=== PATIENT | male | born 1960 | race Caucasian/White ===

== ENCOUNTER 2016-09-07 01:03 | Emergency (ER) | payer MEDICARE, MEDICAID ==
[~2016-09-07] VITALS: Ht 172.7 cm; Wt 71.2 kg
[~2016-09-07 01:03] MED LIST: BISA-79 GT; CALA177L13 TP; CARI350T27 GT; DIPH1TAB PO; DOCU50LI GT; FOLI1TAB16 GT; HYDR2TAB4 GT; HYDR453.3 TP; HYDR4TAB4 GT; LIDO700A TP; ONDA4TAB8 PO; OXYC20TA42 GT; PANT40TA2 GT; POLY250017 GT; SUCR1ORA GT; TAMS0.4C34 GT; THIA100T74 GT
[2016-09-07] MEDS: HYDROMORPHONE 1 MG/1 ML DISP.SYRIN IV ONE ×3 (01:54→04:55)
[2016-09-07] MEDS: ONDANSETRON 4 MG/2 ML VIAL IV ONE (01:55)
--- NOTE | 2016-09-07 01:55 | NUR ---
Pt erlinda from [facility]. Pt c/o severe left shoulder pain s/p slipping on water. Pt seen by Dr. Alvarez. IV established. Pt medicated for pain, will monitor for effects of medication. Pt repositioned for comfort.
[2016-09-07] MEDS ORDERED: HYDROMORPHONE 1 MG/1 ML DISP.SYRIN ONE ×3 (02:01→05:00)
[2016-09-07] MEDS ORDERED: ONDANSETRON 4 MG/2 ML VIAL ONE (02:01)
[2016-09-07] MEDS ORDERED: TAMS-3 GT (02:22)
[2016-09-07] MEDS ORDERED: HYDR-4076 (02:22)
[2016-09-07] MEDS ORDERED: LACT1CAP69 GT (02:22)
[2016-09-07] MEDS ORDERED: AMLO10TA4 GT (02:22)
--- NOTE | 2016-09-07 02:33 | NUR ---
attempted to obtain xrays, unable due to pt wanting to use the restroom. Pt ambulated with slow shuffled gait to br. xray to return in approx 10 mins
--- NOTE | 2016-09-07 02:50 | NUR ---
Attempted to apply sling while waiting for xray to return and pt refused.
--- NOTE | 2016-09-07 03:01 | NUR ---
radiology at bedside.
--- NOTE | 2016-09-07 03:08 | NUR ---
all xrays accept c-spine were obtained. Unable to obtain due to pain. Pt requesting more pain medication. Dr. Alvarez notified, awaiting further orders.
[2016-09-07] MEDS ORDERED: HYDROMORPHONE 1 MG/1 ML DISP.SYRIN IV ONE (03:15)
--- NOTE | 2016-09-07 03:24 | NUR ---
Pt medicated for discomfort, will monitor for effects of medication. Pt repositioned for comfort.
--- NOTE | 2016-09-07 04:14 | NUR ---
Pt to be discharged back to [facility]. Report called to LISA Andujar. Med Responsed called, awaiting S transport.
--- NOTE | 2016-09-07 04:58 | NUR ---
Pt stable for discharge per MD. IV dc'd, catheter intact, drsg applied. No problems noted to site. Pt given ACI. Pt verbalized understanding of dc instructions. Pt left ER via BLS ambulance
[2016-09-07 05:00] VITALS: BP 143/92
== END 2016-09-07 05:01 | disposition home or self-care (01) ==
LOC: ER 01:05
DX: S46.912A Strain of unspecified muscle, fascia and tendon at shoulder and upper arm level, left arm, initial encounter (principal); S40.022A Contusion of left upper arm, initial encounter; K21.9 Gastro-esophageal reflux disease without esophagitis; I50.9 Heart failure, unspecified; Z85.118 Personal history of other malignant neoplasm of bronchus and lung; K44.9 Diaphragmatic hernia without obstruction or gangrene; Z90.49 Acquired absence of other specified parts of digestive tract; G89.29 Other chronic pain; W01.0XXA Fall on same level from slipping, tripping and stumbling without subsequent striking against object, initial encounter; Y93.89 Activity, other specified; Y92.9 Unspecified place or not applicable; Y99.9 Unspecified external cause status
CPT/HCPCS: 73020; 73060; A4663; J1170; J2405

== ENCOUNTER 2016-12-13 20:44 | Emergency (ER) | payer MEDICARE, MEDICAID ==
[~2016-12-13] VITALS: Ht 170.2 cm; Wt 68.0 kg
[~2016-12-13 20:44] MED LIST changes: +AMLO10TA4 GT; +HYDR-4076; -HYDR453.3 TP; +LACT1CAP69 GT; +TAMS-3 GT; -TAMS0.4C34 GT
[2016-12-13] MEDS ORDERED: IV NORMAL SALINE 1000 ML BAG IV ONE (21:00)
[2016-12-13] MEDS ORDERED: PANTOPRAZOLE SODIUM 40 MG VIAL IV ONE (21:00)
[2016-12-13] MEDS ORDERED: ONDANSETRON 4 MG/2 ML VIAL IV ONE (21:00)
[2016-12-13] MEDS ORDERED: HYDROMORPHONE 1 MG/1 ML DISP.SYRIN IV ONE (21:00)
[2016-12-13 21:21] LABS: BASOPHILS # (AUTO) 0.1 K/uL (0.0-8.0); EOSINOPHILS # (AUTO) 0.1 K/uL (0.0-0.7); EOSINOPHILS % (AUTO) 1.2 % (0.0-7.0); HEMATOCRIT 43.3 % (40-50); HEMOGLOBIN 14.3 G/DL (14.0-18.0); LYMPHOCYTES # (AUTO) 2.1 K/UL (0.8-4.8); LYMPHOCYTES % (AUTO) 36.5 % (20.5-51.5); MEAN CORPUSCULAR HEMOGLOBIN 25.7 UUG (27.0-31.0); MEAN CORPUSCULAR HGB CONC 33 g/dL (32.0-37.0); MEAN CORPUSCULAR VOLUME 78.1 FL (82.0-92.0); MONOCYTES # (AUTO) 0.4 K/UL (0.1-1.30); MONOCYTES % (AUTO) 6.9 % (0.0-11.0); NEUTROPHILS % (AUTO) 53.4 % (38.5-71.5); PLATELET COUNT (AUTO) 271 K/UL (150-450); RED BLOOD CELL COUNT(AUTO) 5.54 MIL/UL (4.7-6.1); WHITE BLOOD COUNT (AUTO) 5.7 K/UL (4.0-11.2)
[2016-12-13 21:32] LABS: CREATININE 1.1 mg/dL (0.6-1.3); POTASSIUM 4.1 mmol/L (3.5-5.1)
[2016-12-13 21:37] LABS: BILIRUBIN,DIRECT 0.1 mg/dL (0.0-0.2); BILIRUBIN,TOTAL 0.3 mg/dL (0.2-1.0); TOTAL PROTEIN, SERUM 8.7 g/dL (6.4-8.2)
[2016-12-13] MEDS ORDERED: PANTOPRAZOLE SODIUM 40 MG VIAL ONE (21:50)
[2016-12-13] MEDS ORDERED: ONDANSETRON 4 MG/2 ML VIAL ONE ×2 (21:50→23:48)
[2016-12-13] MEDS ORDERED: HYDROMORPHONE 2 MG/1 ML DISP.SYRIN ONE (21:50)
--- NOTE | 2016-12-13 21:52 | NUR ---
BARBI CALLED, DR. MONROE PAGED. AWAITING CALL.
[2016-12-13] MEDS ORDERED: BENZ1SPR MM (22:17)
[2016-12-13] MEDS ORDERED: BENZ7GEL6 MM (22:17)
[2016-12-13] MEDS ORDERED: CHOL500050 GT (22:17)
[2016-12-13] MEDS ORDERED: ONDA4TAB5 GT (22:17)
[2016-12-13] MEDS ORDERED: DEXL30CA3 GT (22:17)
[2016-12-13 22:30] VITALS: BP 130/49
--- NOTE | 2016-12-13 22:31 | NUR ---
Pt. admitted to [facility] , under care of Dr. MONROE Belongs List completed.
--- NOTE | 2016-12-13 22:40 | NUR ---
PT IS A 56 YEAR OLD MALE ADMIT TO MED SURG FOR DX ABDOMINAL PAIN, NAUSEA AND VOMITING. PER REPORT PT WAS BIB AMBULANCE FROM [facility] FOR C/O ABDOMINAL PAIN. UPON FACE TO FACE PT IS AOX4, AMBULATORY, INTACT, G-TUBE NOTED IN CENTRAL ABDOMINAL AREA. PT DOES C/O PAIN 8/10 ABDOMINAL AREA AT THIS TIME. LUNG SOUNDS CLEAR THROUGH OUT WITH AUSCULTATION. HEP LOCK # 22 IN LEFT FOREARM, INTACT AND PATENT. NO ACUTE DISTRESS NOTED. COMFORT MEASURES PROVIDED. Addendum: 12/14/16 at 0324 by MAGUE TRINIDAD RN MD NOTIFIED FOR ORDERS.
[2016-12-13] MEDS ORDERED: CARISOPRODOL 350 MG TABLET GT PRN (23:00)
[2016-12-13] MEDS ORDERED: POLYETHYLENE GLYCOL 17 GM GT PRN (23:00)
[2016-12-13] MEDS ORDERED: TAMSULOSIN HCL 0.4 MG CAP.SR.24H PO SCH (23:00)
[2016-12-13] MEDS ORDERED: Medication Not On Formulary EA (Oxycodone Hcl 20 MG) GT PRN (23:00)
[2016-12-13] MEDS ORDERED: BISACODYL 5 MG TABLET.DR PO PRN (23:00)
[2016-12-13] MEDS ORDERED: Medication Not On Formulary EA (Hydromorphone HCl (Dilaudid) 4 MG) GT PRN (23:00)
[2016-12-13] MEDS ORDERED: hydrALAZINE HCL 25 MG TABLET GT PRN (23:00)
[2016-12-13] MEDS ORDERED: ZOLPIDEM 5 MG TABLET GT PRN (23:15)
--- NOTE | 2016-12-13 23:20 | NUR ---
PT MADE AWARE OF ORDERS OBTAINED, PT UPSET DILAUDID NOT ORDERED FOR PAIN, PT EDUCATED THAT PER MD THERE IS A SHORTAGE OF DILAUDID, SO PT REQUEST ANY OTHER MEDICATION FOR PAIN, MD NOTIFIED, AWAITING RESPONSE.
[2016-12-13] MEDS ORDERED: LORAZEPAM 2 MG/1 ML VIAL IV PRN (23:30)
[2016-12-13] MEDS ORDERED: ONDANSETRON 4 MG/2 ML VIAL IV PRN (23:30)
--- NOTE | 2016-12-13 23:40 | NUR ---
PT MADE AWARE OF MD ORDER TO GIVE TRAMADOL GT PRN,PT STATING "I WAS GIVEN THAT MEDICATION BEFORE AT [facility] AND IT MADE MY STOMACH BLEED, I DON'T WANT IT" "JUST GIVE ME THE PAPER TO SIGN, I WANT TO LEAVE". MD WAS MADE AWARE PT REQUESTED TO LEAVE AGAINST MEDICAL ADVICE. PT VERBALIZED UNDERSTANDING OF THE RISKS AND CONSEQUENCES RELATED TO LEAVING AGAINST MEDICAL ADVICE.
[2016-12-13] MEDS ORDERED: TRAMADOL HCL 50 MG TABLET GT PRN (23:45)
[2016-12-13] MEDS ORDERED: LORAZEPAM 2 MG/1 ML VIAL ONE (23:48)
[2016-12-13] MEDS ORDERED: TAMSULOSIN HCL 0.4 MG CAP.SR.24H ONE ×2 (23:49→23:50)
--- NOTE | 2016-12-13 23:55 | NUR ---
PT HEP LOCK IN LEFT FOREARM REMOVED. PT BELONGINGS RETURNED TO PT. PT SIGNED PAPER FOR LEAVING AGAINST MEDICAL ADVICE. STATED "I AM GOING TO CALL MY OWN RIDE AND [facility] NO ACUTE DISTRESS NOTED.
[2016-12-14] MEDS ORDERED: TRAMADOL HCL 50 MG TABLET ONE (00:03)
[2016-12-14] MEDS ORDERED: DOCUSATE SODIUM 100 MG/10 ML LIQUID UDC GT SCH (09:00)
[2016-12-14] MEDS ORDERED: AMLODIPINE 10 MG TABLET GT SCH (09:00)
[2016-12-14] MEDS ORDERED: FOLIC ACID 1 MG TABLET GT SCH (09:00)
[2016-12-14] MEDS ORDERED: LIDOCAINE 5% PATCH TD SCH (09:00)
[2016-12-14] MEDS ORDERED: THIAMINE HCL 100 MG TABLET GT SCH (09:00)
[2016-12-14] MEDS ORDERED: Medication Not On Formulary EA (Lactobacillus Acidophilus (Probiotic) 1 EACH) GT SCH (09:00)
[2016-12-14] MEDS ORDERED: PANTOPRAZOLE ORAL SUSPENSION 40 MG SUSPDR.PKT GT SCH (09:00)
== END 2016-12-13 22:17 | disposition left against medical advice (07) ==
LOC: ER 20:47 → EDBD 22:17 → MED 22:17 → ER 22:17 → UNDOADMIN 22:17 → UNDODISIN 12-14 00:01
DX: R10.10 Upper abdominal pain, unspecified (principal); R11.2 Nausea with vomiting, unspecified; I50.9 Heart failure, unspecified; K21.9 Gastro-esophageal reflux disease without esophagitis; Z88.8 Allergy status to other drugs, medicaments and biological substances; Z88.6 Allergy status to analgesic agent; Z90.49 Acquired absence of other specified parts of digestive tract; Z85.118 Personal history of other malignant neoplasm of bronchus and lung; N40.0 Benign prostatic hyperplasia without lower urinary tract symptoms; R97.20 Elevated prostate specific antigen [PSA]
CPT/HCPCS: 36415; 74176; 80048; 80076; 82378; 83690; 84153; 85025; 93005; 96361; 96374; 96375; 99285; A4663 ×2; C9113; J1170; J2405; J7030; J2060

== ENCOUNTER 2019-08-17 22:46 | Inpatient (IN) | payer MEDICARE, OTHER ==
[~2019-08-17] VITALS: Ht 170.2 cm; Wt 64.9 kg
[~2019-08-17 22:46] MED LIST changes: +BENZ1SPR MM; +BENZ7GEL6 MM; -CALA177L13 TP; +CHOL500050 GT; +DEXL30CA3 GT; -HYDR-4076; +HYDR-894; -HYDR2TAB4 GT; +ONDA4TAB5 GT; -ONDA4TAB8 PO; -PANT40TA2 GT; -SUCR1ORA GT
[2019-08-17] MEDS ORDERED: SUCR1ORA15 PO (23:12)
[2019-08-17] MEDS ORDERED: PHEN-704 PO (23:12)
[2019-08-17] MEDS ORDERED: DICY20TA11 GT (23:12)
[2019-08-17] MEDS ORDERED: OPIU1SUP RC (23:12)
[2019-08-17] MEDS ORDERED: CARI350T PO (23:12)
[2019-08-17] MEDS ORDERED: DIAZ5TAB4 PO (23:12)
[2019-08-17] MEDS ORDERED: AMLO10TA7 GT (23:12)
[2019-08-17] MEDS ORDERED: FOLI1TAB16 GT (23:12)
[2019-08-17] MEDS ORDERED: POLY17PO4 GT (23:12)
[2019-08-17] MEDS ORDERED: PANT40SU2 GT (23:12)
--- NOTE | 2019-08-17 23:15 | NUR ---
Dr. Armas at bedside for MSE.
[2019-08-17] MEDS ORDERED: HYDROMORPHONE 1 MG/1 ML DISP.SYRIN IV ONE (23:30)
[2019-08-17] MEDS ORDERED: ONDANSETRON 4 MG/2 ML VIAL IV ONE (23:30)
[2019-08-17] MEDS ORDERED: HYDROMORPHONE 1 MG/1 ML DISP.SYRIN ONE (23:37)
[2019-08-17] MEDS ORDERED: ONDANSETRON 4 MG/2 ML VIAL ONE (23:37)
[2019-08-17 23:48] LABS: CREATININE 1.2 mg/dL (0.6-1.3); POTASSIUM 3.1 mmol/L (3.5-5.1)
[2019-08-17 23:49] LABS: BASOPHILS # (AUTO) 0.3 K/uL (0.0-8.0); BASOPHILS % (AUTO) 4.1 % (0.0-2.0); EOSINOPHILS # (AUTO) 0.1 K/uL (0.0-0.7); EOSINOPHILS % (AUTO) 1.5 % (0.0-7.0); HEMOGLOBIN 9.1 g/dL (12.5-16.3); LYMPHOCYTES # (AUTO) 2.2 K/uL (20.0-40.0); LYMPHOCYTES % (AUTO) 33.9 % (20.5-51.5); MEAN CORPUSCULAR HEMOGLOBIN 20.1 uug (23.8-33.4); MEAN CORPUSCULAR HGB CONC 30 g/dL (32.5-36.3); MEAN CORPUSCULAR VOLUME 66.2 fL (73.0-96.2); MONOCYTES # (AUTO) 0.5 K/uL (2.0-10.0); MONOCYTES % (AUTO) 8.2 % (0.0-11.0); NEUTROPHILS # (AUTO) 3.4 K/uL (1.8-8.9); NEUTROPHILS % (AUTO) 52.3 % (38.5-71.5); PLATELET COUNT (AUTO) 375 K/uL (152-348); RED BLOOD CELL COUNT(AUTO) 4.53 MIL/uL (4.06-5.63); WHITE BLOOD COUNT (AUTO) 6.4 K/uL (3.6-10.2)
[2019-08-17 23:53] LABS: BILIRUBIN,DIRECT 0.1 mg/dL (0.0-0.2); BILIRUBIN,TOTAL 0.3 mg/dL (0.2-1.0); TOTAL PROTEIN, SERUM 8.3 g/dL (6.4-8.2)
[2019-08-18 00:10] LABS: *BILIRUBIN,URIN NEGATIVE (NEGATIVE); *BLOOD, URINE NEGATIVE (NEGATIVE); *CLARITY,URINE CLOUDY (CLEAR); *COLOR,URINE YELLOW (YELLOW); *KETONES,URINE NEGATIVE (NEGATIVE); *UROBILINOGEN,URINE 0.2 E.U./dl (NORMAL); LEUKOCYTE ESTERASE ,URINE 2+ (NEGATIVE); NITRITE, URINE NEGATIVE (NEGATIVE); PH,URINE 5.5 (5.0-8.0); UGLUCOSE NEGATIVE (NEGATIVE)
--- NOTE | 2019-08-18 00:15 | NUR ---
KATELYN Mooney at bedside.
[2019-08-18 00:16] LABS: WBC,URINE 80-100 /HPF (0-3)
[2019-08-18 00:18] LABS: BACTERIA,URINE MODERATE /HPF (NONE SEEN); SQUAMOUS EPITHELIAL CELL,UR MODERATE /HPF (NONE SEEN)
--- NOTE | 2019-08-18 00:29 | NUR ---
Pt requested to have second round of pain medications after CT scan so he can rest and allow the medication to work.
[2019-08-18] MEDS ORDERED: HYDROMORPHONE 1 MG/1 ML DISP.SYRIN IV ONE ×2 (00:30→03:30)
--- NOTE | 2019-08-18 00:33 | NUR ---
Pt down for CT at this time, accompanied by Printing Press Operator Apprentice.
--- NOTE | 2019-08-18 00:50 | NUR ---
Pt back from CT.
[2019-08-18] MEDS ORDERED: HYDROMORPHONE 1 MG/1 ML DISP.SYRIN ONE (00:53)
--- NOTE | 2019-08-18 01:18 | NUR ---
Pt went back down to CT.
[2019-08-18] MEDS ORDERED: CEFTRIAXONE /D5W 50ML IVPB **ER PYXIS IV ONE (01:20)
[2019-08-18] MEDS ORDERED: CEFTRIAXONE 1 G in IV DEXTROSE 5% 50 ML IV ONE (01:30)
[2019-08-18] MEDS ORDERED: POTASSIUM CHLORIDE 20 MEQ TAB.PRT.SR PO ONE (01:45)
--- NOTE | 2019-08-18 03:09 | NUR ---
Pt brought in by [facility], arranged for return trip back to facility. 30 to 45 minutes ETA. S/W Iam.
--- NOTE | 2019-08-18 03:16 | NUR ---
Pt will not be sent back to facility. will admit patient to Med Surg. Placed a call to [email or web address] for panel call. Awaiting call back. Charge Nurse Gris made aware of pending admission. Room 304 provided.
--- NOTE | 2019-08-18 03:44 | NUR ---
Pt refusing indwelling harp catheter, despite risk and benefits explained of continued In and Out catheterization, however patient refused.
--- NOTE | 2019-08-18 03:45 | NUR ---
Dr. Armas in panel call with Satya Arshad NP. Accepted for admission to [facility] for Intractable Pain/UTI. All belongings noted and accounted for. MRSA Swab done.
[2019-08-18] MEDS ORDERED: Z GUARD REMEDY PASTE 57 GM TUBE TOP PRN (04:00)
[2019-08-18] MEDS ORDERED: MAGNESIUM HYDROXIDE 30 ML LIQUID UDC PO PRN (04:00)
--- NOTE | 2019-08-18 04:09 | NUR ---
Finished giving report to Nisreen GILES. Will transport patient via wheelchair, accompanied by RN.
[2019-08-18 04:12] VITALS: BP 133/59
--- NOTE | 2019-08-18 04:20 | NUR ---
Patient arrived via wheelchair from the ED with belongings.
--- NOTE | 2019-08-18 04:25 | NUR ---
Warm handoff to Nisreen/Rei GILES. Pt transferred to Room 304 in stable condition.
[2019-08-18] MEDS: HYDROMORPHONE 1 MG/1 ML DISP.SYRIN IV PRN ×2 (05:13→10:02)
--- NOTE | 2019-08-18 06:26 | NUR ---
Patient lying calmly in bed. No signs of acute distress. Patient denies c/o pain or SOB. Patient needs met and attended to. Safety measures endorsed to oncoming staff.
[2019-08-18 07:06] LABS: CREATININE 1.1 mg/dL (0.6-1.3); PHOSPHOROUS 3.9 mg/dL (2.5-4.9); POTASSIUM 3.9 mmol/L (3.5-5.1)
[2019-08-18 07:30] LABS: THYROID STIMULATING HORMONE 3.24 mIU/mL (0.358-3.740)
--- NOTE | 2019-08-18 08:00 | NUR ---
Patient in bed, awake and verbally responsive. No signs of distress noted. No SOB. No complain of pain at this time. Gtube intact and patent. kept clean and comfortable. Will continue to monitor.
[2019-08-18] MEDS ORDERED: JEVITY 1.2 1000 ML LIQUID GT PRN (09:30)
[2019-08-18] MEDS ORDERED: hydrALAZINE HCL 25 MG TABLET PO PRN (11:15)
[2019-08-18] MEDS ORDERED: AMLODIPINE 10 MG TABLET GT SCH (11:15)
[2019-08-18] MEDS ORDERED: ONDANSETRON HCL 4 MG TABLET GT PRN (11:15)
[2019-08-18] MEDS ORDERED: CARISOPRODOL 350 MG TABLET PO PRN (11:15)
[2019-08-18] MEDS ORDERED: PHENAZOPYRIDINE HCL 100 MG TABLET PO PRN (11:15)
[2019-08-18] MEDS ORDERED: SUCRALFATE 1 G/10 ML LIQUID UDC PO PRN (11:15)
[2019-08-18] MEDS: DOCUSATE SODIUM 100 MG/10 ML LIQUID UDC GT SCH ×2 (11:29→16:21)
[2019-08-18] MEDS: FOLIC ACID 1 MG TABLET GT SCH (11:29)
[2019-08-18] MEDS: AMLODIPINE 10 MG TABLET GT SCH (11:33)
[2019-08-18 11:42] VITALS: BP 116/58
[2019-08-18] MEDS: THIAMINE HCL 100 MG TABLET GT SCH (11:43)
[2019-08-18] MEDS: IV NS 1000 ML 1,000 ML IV PRN (12:19)
[2019-08-18] MEDS ORDERED: OXYCODONE HCL 5 MG TABLET GT PRN (13:15)
[2019-08-18] MEDS ORDERED: DIAZEPAM 5 MG TABLET PO PRN (13:30)
[2019-08-18] MEDS: DICYCLOMINE HCL 20 MG TABLET GT SCH ×2 (13:42→17:04)
[2019-08-18] MEDS ORDERED: SOD FERRIC GLUC COMPLX/SUCROSE 125 MG in IV NORMAL SALINE 100 ML IV SCH (14:00)
[2019-08-18] MEDS: HYDROMORPHONE 2 MG/1 ML DISP.SYRIN IV PRN ×3 (14:13→22:36)
[2019-08-18 15:07] VITALS: BP 118/58
[2019-08-18 16:06] LABS: BASOPHILS # (AUTO) 0.2 K/uL (0.0-8.0); EOSINOPHILS # (AUTO) 0.1 K/uL (0.0-0.7); EOSINOPHILS % (AUTO) 1.8 % (0.0-7.0); HEMATOCRIT 30.2 % (36.7-47.1); HEMOGLOBIN 9.1 g/dL (12.5-16.3); LYMPHOCYTES # (AUTO) 1.2 K/uL (20.0-40.0); LYMPHOCYTES % (AUTO) 29.1 % (20.5-51.5); MEAN CORPUSCULAR HEMOGLOBIN 20.3 uug (23.8-33.4); MEAN CORPUSCULAR HGB CONC 30 g/dL (32.5-36.3); MEAN CORPUSCULAR VOLUME 67.1 fL (73.0-96.2); MONOCYTES # (AUTO) 0.4 K/uL (2.0-10.0); MONOCYTES % (AUTO) 9.2 % (0.0-11.0); NEUTROPHILS # (AUTO) 2.2 K/uL (1.8-8.9); NEUTROPHILS % (AUTO) 54.9 % (38.5-71.5); PLATELET COUNT (AUTO) 328 K/uL (152-348)
[2019-08-18] MEDS ORDERED: CARISOPRODOL 350 MG TABLET GT PRN (17:45)
[2019-08-18] MEDS: ONDANSETRON 4 MG/2 ML VIAL IV PRN (18:23)
--- NOTE | 2019-08-18 18:35 | NUR ---
Resident awake,no distress noted, afebrile,c/o lower back pain ,PRN pain medication given , dilaudid given 3x with relieved ,IV line in place on Rt AC and Lt hand, no s/s of infiltration, Jt/Gt intact, refused gt feeding at this d/t c/o of nausea, Zofran PRN given, Per Pt to resumed Gt feeding later once he feels better,call light with in reach, will continue to monitor.,
--- NOTE | 2019-08-18 19:50 | NUR ---
Patient received in bed, AAOx4. Patient denies any acute distress or pain at this time. LH IV is intact and running with NS at 50cc. Patient has a GJ tube, patent, dry and intact with no sign of infection noted. Patient is on Jevity 1.2 at 60cc but currently on hold, per patient, he feels nauseous, Zofran was given by day shift RN, will monitor. Vitals stable. Safety measures in place. Bed low and locked in position. Will continue with the plan of care.
[2019-08-18] MEDS: TAMSULOSIN HCL 0.4 MG CAP.SR.24H PO SCH (20:05)
[2019-08-18] MEDS: CULTURELLE CAPSULE GT SCH (20:05)
[2019-08-18] MEDS: CEFTRIAXONE 1 G in IV DEXTROSE 5% 50 ML IV SCH (20:05)
[2019-08-18 20:12] VITALS: BP 103/54
[2019-08-19] MEDS: HYDROMORPHONE 2 MG/1 ML DISP.SYRIN IV PRN ×7 (02:36→22:18)
[2019-08-19 04:00] VITALS: BP 99/45
[2019-08-19] MEDS: ONDANSETRON 4 MG/2 ML VIAL IV PRN ×2 (06:12→22:18)
[2019-08-19] MEDS: IV NS 1000 ML 1,000 ML IV PRN (06:43)
--- NOTE | 2019-08-19 06:50 | NUR ---
Patient slept intermittently through the night. Patient is awake and denies any acute distress or pain at this time. IV on LH is intact and patent with NS running at 50cc. GJ tube is intact with no sign of infection noted. Jevity 1.2 still on hold, per patient's request. Prescribed medications given, patient tolerated. Pain managed effectively. Vitals stable. Comfort care and needs attended. Fall precaution maintained. Safety measures in place. Bed low and locked in position. Call light and personal belongings within reach. Will endorse to the oncoming nurse accordingly.
[2019-08-19 06:54] LABS: POTASSIUM 3.8 mmol/L (3.5-5.1)
[2019-08-19 07:26] LABS: BASOPHILS # (AUTO) 0.2 K/uL (0.0-8.0); EOSINOPHILS # (AUTO) 0.1 K/uL (0.0-0.7); EOSINOPHILS % (AUTO) 1.8 % (0.0-7.0); HEMATOCRIT 28.2 % (36.7-47.1); HEMOGLOBIN 8.6 g/dL (12.5-16.3); LYMPHOCYTES # (AUTO) 1.3 K/uL (20.0-40.0); LYMPHOCYTES % (AUTO) 34.7 % (20.5-51.5); MEAN CORPUSCULAR HEMOGLOBIN 20.4 uug (23.8-33.4); MEAN CORPUSCULAR HGB CONC 31 g/dL (32.5-36.3); MONOCYTES # (AUTO) 0.3 K/uL (2.0-10.0); NEUTROPHILS # (AUTO) 1.8 K/uL (1.8-8.9); NEUTROPHILS % (AUTO) 48.8 % (38.5-71.5); PLATELET COUNT (AUTO) 294 K/uL (152-348); WHITE BLOOD COUNT (AUTO) 3.7 K/uL (3.6-10.2)
--- NOTE | 2019-08-19 07:35 | NUR ---
RECEIVED PATIENT IN BED, ASLEEP, EASY TO WAKE UP. DENIES SOB OR CHEST PAIN. NO SIGNS OF DISTRESS AT THIS TIME. PAIN MANAGEMENT HAS BEEN ADDRESSED AND WILL MEDICATE ORDERED BY MD. ALL NEEDS MET AT THIS TIME. SAFETY AND FALL PREVENTION IN PLACE. BED LOW AND LOCKED. CALL LIGHT IN REACH. WILL CONTINUE TO MONITOR.
[2019-08-19] MEDS: PANTOPRAZOLE ORAL SUSPENSION 40 MG SUSPDR.PKT GT SCH (09:00)
[2019-08-19] MEDS: DOCUSATE SODIUM 100 MG/10 ML LIQUID UDC GT SCH ×2 (09:00→16:10)
[2019-08-19] MEDS: THIAMINE HCL 100 MG TABLET GT SCH (09:00)
[2019-08-19] MEDS: MIRALAX 17 GM POWD.PACK GT SCH (09:00)
[2019-08-19] MEDS: CULTURELLE CAPSULE GT SCH ×2 (09:00→20:30)
[2019-08-19] MEDS: FOLIC ACID 1 MG TABLET GT SCH (09:00)
[2019-08-19] MEDS: DICYCLOMINE HCL 20 MG TABLET GT SCH ×3 (09:01→16:10)
[2019-08-19] MEDS: AMLODIPINE 10 MG TABLET GT SCH (09:06)
[2019-08-19 12:25] VITALS: BP 112/60
[2019-08-19] MEDS ORDERED: OXYCODONE HCL 5 MG TABLET GT PRN (13:15)
[2019-08-19] MEDS: CARISOPRODOL 350 MG TABLET GT SCH ×2 (13:25→16:10)
--- NOTE | 2019-08-19 13:44 | NUR ---
notified that patient is refusing jevity feeding and wants to know if he can be placed on liquid diet.
--- NOTE | 2019-08-19 13:55 | NUR ---
ordered clear liquid and no swallow eval needed per doctor ina Womack
[2019-08-19 15:42] LABS: EOSINOPHILS % (MANUAL) 1 % (0-8); LYMPHOCYTES % (MANUAL) 46 % (20-40); MONOCYTES % (MANUAL) 7 % (2-10); NEUTROPHILS % (MANUAL) 46 % (42-75)
[2019-08-19 16:19] VITALS: BP 122/55
--- NOTE | 2019-08-19 19:40 | NUR ---
AOX4. NO SIGNS OF DISTRESS THROUGHOUT THE SHIFT. PAIN MANAGEMENT HAS BEEN ADDRESSED. REPORT GIVEN TO NECKTIE TURNER NURSE.
--- NOTE | 2019-08-19 20:00 | NUR ---
Received patient awake and alert in bed, no signs of acute distress noted. complains of some back pain with PRN dilaudid already given from morning nurse, stating it is helping. No SOB. Vitals WNL. IVF running on the left hand. GJ tube noted. Patient is on clear liquid diet and tolerating well. Safety measures initiated. bed is low and locked, call light within reach. Will continue to monitor.
[2019-08-19 20:14] VITALS: BP 111/57
[2019-08-19] MEDS: TAMSULOSIN HCL 0.4 MG CAP.SR.24H PO SCH (20:30)
[2019-08-19] MEDS: CEFTRIAXONE 1 G in IV DEXTROSE 5% 50 ML IV SCH (20:31)
--- NOTE | 2019-08-20 00:28 | NUR ---
Patient self catheterized and still noted with some bleeding. Patient is refusing to have IVF right now says it is making him want to urinate more and he can't keep catheterizing himself or he will keep causing trauma. Will hold for now and follow up in AM.
[2019-08-20] MEDS: HYDROMORPHONE 2 MG/1 ML DISP.SYRIN IV PRN ×8 (01:20→23:55)
[2019-08-20 05:17] VITALS: BP 106/49
[2019-08-20 06:36] LABS: BASOPHILS # (AUTO) 0.2 K/uL (0.0-8.0); HEMOGLOBIN 8.4 g/dL (12.5-16.3); LYMPHOCYTES # (AUTO) 1.6 K/uL (20.0-40.0); MEAN CORPUSCULAR HEMOGLOBIN 20.7 uug (23.8-33.4); MEAN CORPUSCULAR HGB CONC 31 g/dL (32.5-36.3); MONOCYTES # (AUTO) 0.4 K/uL (2.0-10.0)
[2019-08-20 06:41] LABS: BASOPHILS % (AUTO) 4.7 % (0.0-2.0); EOSINOPHILS # (AUTO) 0.2 K/uL (0.0-0.7); EOSINOPHILS % (AUTO) 4.5 % (0.0-7.0); LYMPHOCYTES % (AUTO) 40.7 % (20.5-51.5); MEAN CORPUSCULAR VOLUME 66.6 fL (73.0-96.2); MONOCYTES % (AUTO) 10.5 % (0.0-11.0); NEUTROPHILS # (AUTO) 1.5 K/uL (1.8-8.9); NEUTROPHILS % (AUTO) 39.6 % (38.5-71.5); PLATELET COUNT (AUTO) 287 K/uL (152-348); RED BLOOD CELL COUNT(AUTO) 4.06 MIL/uL (4.06-5.63); WHITE BLOOD COUNT (AUTO) 3.8 K/uL (3.6-10.2)
[2019-08-20 06:44] LABS: CREATININE 1.1 mg/dL (0.6-1.3); POTASSIUM 3.5 mmol/L (3.5-5.1)
--- NOTE | 2019-08-20 08:00 | NUR ---
Discussed plan of care with patient re: pain management and fall precaution. pt agreeable with plan of care. G-J tube audible in stomach. No residual noted. Call light is within reach.
[2019-08-20] MEDS: FOLIC ACID 1 MG TABLET GT SCH (08:18)
[2019-08-20] MEDS: MIRALAX 17 GM POWD.PACK GT SCH (08:19)
[2019-08-20] MEDS: CARISOPRODOL 350 MG TABLET GT SCH ×3 (08:19→21:31)
[2019-08-20] MEDS: DOCUSATE SODIUM 100 MG/10 ML LIQUID UDC GT SCH ×2 (08:19→16:46)
[2019-08-20] MEDS: CULTURELLE CAPSULE GT SCH ×2 (08:19→20:51)
[2019-08-20] MEDS: DICYCLOMINE HCL 20 MG TABLET GT SCH ×3 (08:30→16:46)
[2019-08-20] MEDS: THIAMINE HCL 100 MG TABLET GT SCH (08:47)
[2019-08-20] MEDS: PANTOPRAZOLE ORAL SUSPENSION 40 MG SUSPDR.PKT GT SCH (08:47)
[2019-08-20] MEDS: AMLODIPINE 10 MG TABLET GT SCH (08:48)
[2019-08-20 11:19] LABS: EOSINOPHILS % (MANUAL) 1 % (0-8); LYMPHOCYTES % (MANUAL) 41 % (20-40); MONOCYTES % (MANUAL) 2 % (2-10); NEUTROPHILS % (MANUAL) 56 % (42-75)
[2019-08-20 11:25] VITALS: BP 112/99
[2019-08-20 15:40] VITALS: BP 100/88
--- NOTE | 2019-08-20 17:45 | NUR ---
Sensitivity result given to WILVER DATER ASSEMBLER. Awaiting further orders. Pt's pain managed with dilaudid 2 mg IV current resp 18. Pty continues to refuse to have IVF secondary to pt's c/o increase micturating through out the night. Attempt offer his Jevity through out the day pt refused. Discuss importance of nutrition. But pt continues to refuse Jevity.
[2019-08-20] MEDS ORDERED: NALOXONE HCL 0.4 MG/ML AMPUL IV PRN (18:15)
[2019-08-20] MEDS: levoFLOXacin 500 MG TABLET PO SCH (18:20)
--- NOTE | 2019-08-20 18:31 | NUR ---
New order received from IRMA MCCRACKEN for infection changed abx from rocephin to levaquin po -given. Pt is in no acute distress. Call light is within reach.
--- NOTE | 2019-08-20 20:00 | NUR ---
Received patient awake and alert. Patient shows no signs or symptoms of distress at this time. Vital signs stable. Afebrile at this time. Refuses to have tube feeding and IV fluids at this time. Bed set to lowest position. Call light within reach. Side rails x2 are up. Will continue to monitor patient.
[2019-08-20 20:24] VITALS: BP 112/49
[2019-08-20] MEDS: TAMSULOSIN HCL 0.4 MG CAP.SR.24H PO SCH (20:51)
[2019-08-21] MEDS: ONDANSETRON 4 MG/2 ML VIAL IV PRN ×2 (02:45→09:17)
[2019-08-21] MEDS: HYDROMORPHONE 2 MG/1 ML DISP.SYRIN IV PRN ×7 (03:17→21:58)
[2019-08-21] MEDS: CARISOPRODOL 350 MG TABLET GT SCH ×3 (05:30→21:01)
[2019-08-21 05:56] LABS: BASOPHILS # (AUTO) 0.2 K/uL (0.0-8.0); EOSINOPHILS # (AUTO) 0.1 K/uL (0.0-0.7); EOSINOPHILS % (AUTO) 3.1 % (0.0-7.0); HEMATOCRIT 28.6 % (36.7-47.1); HEMOGLOBIN 8.8 g/dL (12.5-16.3); LYMPHOCYTES # (AUTO) 1.6 K/uL (20.0-40.0); LYMPHOCYTES % (AUTO) 42.5 % (20.5-51.5); MEAN CORPUSCULAR HEMOGLOBIN 20.4 uug (23.8-33.4); MEAN CORPUSCULAR HGB CONC 31 g/dL (32.5-36.3); MEAN CORPUSCULAR VOLUME 66.4 fL (73.0-96.2); MONOCYTES # (AUTO) 0.4 K/uL (2.0-10.0); MONOCYTES % (AUTO) 10.3 % (0.0-11.0); NEUTROPHILS # (AUTO) 1.5 K/uL (1.8-8.9); NEUTROPHILS % (AUTO) 39.1 % (38.5-71.5); PLATELET COUNT (AUTO) 276 K/uL (152-348); POTASSIUM 3.3 mmol/L (3.5-5.1); RED BLOOD CELL COUNT(AUTO) 4.32 MIL/uL (4.06-5.63); WHITE BLOOD COUNT (AUTO) 3.8 K/uL (3.6-10.2)
[2019-08-21 06:15] VITALS: BP 122/58
--- NOTE | 2019-08-21 06:29 | NUR ---
Patient shows no signs or symptoms of distress at this time. Vital signs stable. Afebrile throughout the night. Will endorse patient to day shift nurse in stable condition.
[2019-08-21] MEDS ORDERED: ZOLPIDEM 5 MG TABLET PO PRN ×2 (08:00→22:15)
[2019-08-21] MEDS ORDERED: POTASSIUM CHLORIDE 20 MEQ TAB.PRT.SR PO ONE (08:00)
[2019-08-21] MEDS: MIRALAX 17 GM POWD.PACK GT SCH (08:18)
[2019-08-21] MEDS: DOCUSATE SODIUM 100 MG/10 ML LIQUID UDC GT SCH ×2 (08:18→16:09)
[2019-08-21] MEDS: PANTOPRAZOLE ORAL SUSPENSION 40 MG SUSPDR.PKT GT SCH (08:18)
[2019-08-21] MEDS: DICYCLOMINE HCL 20 MG TABLET GT SCH ×3 (08:18→16:09)
[2019-08-21] MEDS: THIAMINE HCL 100 MG TABLET GT SCH (08:19)
[2019-08-21] MEDS: CULTURELLE CAPSULE GT SCH ×2 (08:19→20:52)
[2019-08-21] MEDS: FOLIC ACID 1 MG TABLET GT SCH (08:19)
[2019-08-21] MEDS: AMLODIPINE 10 MG TABLET GT SCH (08:19)
[2019-08-21 08:39] LABS: EOSINOPHILS % (MANUAL) 2 % (0-8); LYMPHOCYTES % (MANUAL) 46 % (20-40); MONOCYTES % (MANUAL) 6 % (2-10); NEUTROPHILS % (MANUAL) 46 % (42-75)
[2019-08-21 11:32] VITALS: BP 97/53
[2019-08-21 16:00] VITALS: BP 98/45
[2019-08-21] MEDS: levoFLOXacin 500 MG TABLET PO SCH (17:02)
--- NOTE | 2019-08-21 19:30 | NUR ---
patient received lying in bed reading newspaper. no s/s of acute distress. v/s stable. denies pain at this time. Dr. Oneal aware that patient is refusing IVF and feeding tube. safety precautions provided. will continue to monitor and assess patient.
[2019-08-21 20:07] VITALS: BP 100/58
[2019-08-21] MEDS: TAMSULOSIN HCL 0.4 MG CAP.SR.24H PO SCH (20:52)
[2019-08-21] MEDS: LORAZEPAM 1 MG TABLET PO PRN (20:52)
[2019-08-21] MEDS ORDERED: ZOLPIDEM 5 MG TABLET PO ONE (22:15)
--- NOTE | 2019-08-21 22:16 | NUR ---
Miguel Call NP gave orders for another Ambien 5mg x1 tonight and change order for Ambien 5mg to Ambien 10mg PO QHS PRN for sleep. will follow up with patient.
[2019-08-22] MEDS: HYDROMORPHONE 2 MG/1 ML DISP.SYRIN IV PRN ×4 (02:27→12:23)
[2019-08-22] MEDS: CARISOPRODOL 350 MG TABLET GT SCH ×2 (05:18→13:42)
[2019-08-22] MEDS: LORAZEPAM 1 MG TABLET PO PRN ×2 (05:30→13:42)
--- NOTE | 2019-08-22 05:37 | NUR ---
Patient is AAOX3. Verbally responsive and able to make his needs known. Slept comfortably throughout the night after administration of Ambien 10mg. no significant acute change during this shift. All medications due administered as ordered and tolerated well with no ASE. Denies pain or discomfort at this time. LH PIV intact and patent currently saline lock. All patient needs attended and met. Safety measures in place. Call light and all frequently used items within patient reach. Will continue to monitor and asses until care is rendered to oncoming nurse.
[2019-08-22 05:46] VITALS: BP 108/60
[2019-08-22 06:44] LABS: CREATININE 1.1 mg/dL (0.6-1.3); POTASSIUM 3.7 mmol/L (3.5-5.1)
[2019-08-22 07:02] LABS: BASOPHILS # (AUTO) 0.2 K/uL (0.0-8.0); EOSINOPHILS # (AUTO) 0.1 K/uL (0.0-0.7); EOSINOPHILS % (AUTO) 3.3 % (0.0-7.0); HEMATOCRIT 28.6 % (36.7-47.1); HEMOGLOBIN 8.8 g/dL (12.5-16.3); LYMPHOCYTES # (AUTO) 1.7 K/uL (20.0-40.0); LYMPHOCYTES % (AUTO) 45.5 % (20.5-51.5); MEAN CORPUSCULAR HEMOGLOBIN 20.5 uug (23.8-33.4); MEAN CORPUSCULAR HGB CONC 31 g/dL (32.5-36.3); MEAN CORPUSCULAR VOLUME 66.3 fL (73.0-96.2); MONOCYTES # (AUTO) 0.3 K/uL (2.0-10.0); MONOCYTES % (AUTO) 8.8 % (0.0-11.0); NEUTROPHILS # (AUTO) 1.4 K/uL (1.8-8.9); NEUTROPHILS % (AUTO) 36.6 % (38.5-71.5); PLATELET COUNT (AUTO) 286 K/uL (152-348); RED BLOOD CELL COUNT(AUTO) 4.31 MIL/uL (4.06-5.63); WHITE BLOOD COUNT (AUTO) 3.7 K/uL (3.6-10.2)
[2019-08-22] MEDS: DOCUSATE SODIUM 100 MG/10 ML LIQUID UDC GT SCH (08:54)
[2019-08-22] MEDS: AMLODIPINE 10 MG TABLET GT SCH (08:55)
[2019-08-22] MEDS: PANTOPRAZOLE ORAL SUSPENSION 40 MG SUSPDR.PKT GT SCH (08:55)
[2019-08-22] MEDS: CULTURELLE CAPSULE GT SCH (08:55)
[2019-08-22] MEDS: THIAMINE HCL 100 MG TABLET GT SCH (08:55)
[2019-08-22] MEDS: ONDANSETRON 4 MG/2 ML VIAL IV PRN (08:56)
[2019-08-22] MEDS: FOLIC ACID 1 MG TABLET GT SCH (08:56)
[2019-08-22] MEDS: MIRALAX 17 GM POWD.PACK GT SCH (09:00)
[2019-08-22] MEDS: DICYCLOMINE HCL 20 MG TABLET GT SCH ×2 (09:03→12:29)
--- NOTE | 2019-08-22 09:11 | NUR ---
PATIENT IS AWAKE ALERT AND ORIENTED STATED HAVING SEVERE PAIN REQUESTED FOR PAIN MEDICATIONS DILAUDID GIVEN ORDERED MADE COMFORTABLE WILL CONTINUE TO OBSERVE.
[2019-08-22] MEDS ORDERED: LACT-209 GT (11:16)
[2019-08-22] MEDS ORDERED: LEVO500T2 PO (11:16)
--- NOTE | 2019-08-22 11:30 | NUR ---
PATIENT SEEN AND EXAMINED BY RUMA VU WITH ORDER TO DISCHARGE BACK TO [facility] PATIENT AWARE AWAITING FOR MAINTENANCE ANALYST TO ARRANGE WITH [facility] ACCEPTANCE.
[2019-08-22 11:50] VITALS: BP 131/71
--- NOTE | 2019-08-22 12:30 | NUR ---
PATIENT CAN BE DISCHARGED BACK TO [facility] PATIENT AWARE STATED HAS NO FAMILY .
--- NOTE | 2019-08-22 14:30 | NUR ---
CALLED THE [facility] AND REPORT GIVEN TO ANTWON GILES FOR CONTINUING CARE PATIENT NEEDS TO CONTINUE ON ATB FOR 5 DAYS MORE AND TO HAVE HIS H/H RECHECKED IN 2TO 3 DAYS AND TO ENSURE UTI RESOLVED AND ALSO TO MONITOR PATIENTS BLOOD PRESSURE OFF NORVASC AND FOLLOW UP WITH UROLOGY AND PAIN MANAGEMENT MD AND SHE EXPRESSED UNDERSTANDING.
--- NOTE | 2019-08-22 15:00 | NUR ---
PATIENT DISCHARGED PICKED UP BY THE AMBULANCE IN SATISFACTORY CONDITION WITH DISCHARGE INSTRUCTIONS AND ALL OF HIS PERSONAL BELONGINGS AND HE EXPRESSED UNDERSTANDING PATIENT REQUESTED FOR A COPY OF HIS DISCHARGE PAPER AND WAS GIVEN TO HIM IN ADDITION TO THE ONES THAT WAS GIVEN TO THE AMBULANCE DRIVERS FOR THE SNF.
[2019-08-22 18:56] LABS: EOSINOPHILS % (MANUAL) 2 % (0-8); LYMPHOCYTES % (MANUAL) 46 % (20-40); MONOCYTES % (MANUAL) 8 % (2-10); NEUTROPHILS % (MANUAL) 44 % (42-75)
[2019-08-22 18:59] LABS: BASOPHILS % (AUTO) > 2.0 % (0.0-2.0)
[2019-08-23] MEDS ORDERED: OXYC30TA2 PO (06:31)
[2019-08-28] MEDS ORDERED: TAMS-3 PO (15:22)
[2019-08-28] MEDS ORDERED: FLUD0.1T3 PO (15:36)
== END 2019-08-22 15:00 | DRG 726 ==
LOC: ER 22:53 → MEDSURG3 08-18 04:07
PROVIDERS: ADMIT Nurse Practitioner Acute Care; ATTEND Registered Nurse
DX: N40.1 Benign prostatic hyperplasia with lower urinary tract symptoms (principal); N39.0 Urinary tract infection, site not specified; I50.32 Chronic diastolic (congestive) heart failure; K51.90 Ulcerative colitis, unspecified, without complications; B96.1 Klebsiella pneumoniae [K. pneumoniae] as the cause of diseases classified elsewhere; B96.89 Other specified bacterial agents as the cause of diseases classified elsewhere; Z66 Do not resuscitate; I11.0 Hypertensive heart disease with heart failure; R33.8 Other retention of urine; D50.9 Iron deficiency anemia, unspecified; E87.6 Hypokalemia; R47.02 Dysphasia; K21.9 Gastro-esophageal reflux disease without esophagitis; K44.9 Diaphragmatic hernia without obstruction or gangrene; I88.0 Nonspecific mesenteric lymphadenitis; M54.16 Radiculopathy, lumbar region; M54.31 Sciatica, right side; G89.4 Chronic pain syndrome; Z91.19 Patient's noncompliance with other medical treatment and regimen; N50.812 Left testicular pain; N50.811 Right testicular pain; R31.9 Hematuria, unspecified; I95.9 Hypotension, unspecified; K64.9 Unspecified hemorrhoids; Z85.118 Personal history of other malignant neoplasm of bronchus and lung; Z93.1 Gastrostomy status; Z79.891 Long term (current) use of opiate analgesic
CPT/HCPCS: 36415; 51702; 70030-TC; 72192; 76870; 82378; 83550; 83690; 83735; 84100; 84443; 85025; 87077; 87086; 93005; A4217; A4663; C1758; G0378; J0696; J1170; J2405; J2916; J3490; J7030; J7060; U0003-CS

== ENCOUNTER 2019-08-23 06:19 | Inpatient (IN) | payer MEDICARE, OTHER ==
[~2019-08-23] VITALS: Ht 170.2 cm; Wt 59.0 kg
[~2019-08-23 06:19] MED LIST changes: -AMLO10TA4 GT; +AMLO10TA7 GT; -BENZ1SPR MM; -BENZ7GEL6 MM; -BISA-79 GT; +CARI350T PO; -CARI350T27 GT; -CHOL500050 GT; -DEXL30CA3 GT; +DIAZ5TAB4 PO; +DICY20TA11 GT; +LACT-209 GT; +LEVO500T2 PO; -LIDO700A TP; +OPIU1SUP RC; +PANT40SU2 GT; +PHEN-704 PO; +POLY17PO4 GT; -POLY250017 GT; +SUCR1ORA15 PO
--- NOTE | 2019-08-23 06:22 | NUR ---
DR. KARIMI AT BEDSIDE FOR MSE.
[2019-08-23] MEDS ORDERED: OXYC30TA2 PO (06:31)
[2019-08-23] MEDS ORDERED: HYDROMORPHONE 1 MG/1 ML DISP.SYRIN ONE ×3 (06:41→06:58)
[2019-08-23] MEDS ORDERED: ONDANSETRON 4 MG/2 ML VIAL ONE ×2 (06:42→06:45)
[2019-08-23] MEDS ORDERED: HYDROMORPHONE 1 MG/1 ML DISP.SYRIN IV ONE (06:45)
[2019-08-23] MEDS ORDERED: IV NORMAL SALINE 1000 ML BAG IV ONE (06:45)
[2019-08-23] MEDS ORDERED: ONDANSETRON 4 MG/2 ML VIAL IV ONE (06:45)
[2019-08-23 06:57] LABS: BASOPHILS # (AUTO) 0.2 K/uL (0.0-8.0); BASOPHILS % (AUTO) 3.7 % (0.0-2.0); EOSINOPHILS % (AUTO) 0.5 % (0.0-7.0); HEMATOCRIT 31.4 % (36.7-47.1); HEMOGLOBIN 9.7 g/dL (12.5-16.3); LYMPHOCYTES # (AUTO) 1.9 K/uL (20.0-40.0); LYMPHOCYTES % (AUTO) 32.1 % (20.5-51.5); MEAN CORPUSCULAR HEMOGLOBIN 20.6 uug (23.8-33.4); MEAN CORPUSCULAR HGB CONC 31 g/dL (32.5-36.3); MEAN CORPUSCULAR VOLUME 66.6 fL (73.0-96.2); MONOCYTES # (AUTO) 0.5 K/uL (2.0-10.0); MONOCYTES % (AUTO) 8.7 % (0.0-11.0); NEUTROPHILS # (AUTO) 3.2 K/uL (1.8-8.9); PLATELET COUNT (AUTO) 370 K/uL (152-348); RED BLOOD CELL COUNT(AUTO) 4.72 MIL/uL (4.06-5.63); WHITE BLOOD COUNT (AUTO) 5.8 K/uL (3.6-10.2)
--- NOTE | 2019-08-23 07:04 | NUR ---
REPORT TO CHAN THOMAS
--- NOTE | 2019-08-23 07:04 | NUR ---
Handoff report given to CHAN Knight
[2019-08-23 07:09] LABS: CREATININE 1.6 mg/dL (0.6-1.3); POTASSIUM 3.5 mmol/L (3.5-5.1)
--- NOTE | 2019-08-23 07:10 | NUR ---
Pt refused to change to hospital gown.
--- NOTE | 2019-08-23 07:15 | NUR ---
COVID 19 nasal swab collected and sent to LAB.
[2019-08-23 07:17] LABS: BILIRUBIN,DIRECT 0.1 mg/dL (0.0-0.2); BILIRUBIN,TOTAL 0.2 mg/dL (0.2-1.0); TOTAL PROTEIN, SERUM 8.5 g/dL (6.4-8.2)
--- NOTE | 2019-08-23 07:20 | NUR ---
Pt out of ER for CT.
--- NOTE | 2019-08-23 07:50 | NUR ---
PT back from CT resting in bed.
--- NOTE | 2019-08-23 08:14 | NUR ---
Patient is resting comfortably in bed with eyes closed, NAD noted.
--- NOTE | 2019-08-23 09:30 | NUR ---
Patient admitted to room 302 via rney .AOx4 ,irritable, c/o 10/10 sharp ,aching pain on back , on room air, no distress noted,telemetry applied,IV line on left forearm [address], no s/s infiltration, GT/JT intact,no residual noted, patent, site clean and dry , no s/s of infection,dressing applied, refused Gt feeding at this time, made aware, initial body assessment refused,explained risk and benefits ,Patient still refused. Safety measures rendered, call light with in reach,all needs met and attended. will continue to monitor.
[2019-08-23 09:40] VITALS: BP 135/75
[2019-08-23] MEDS ORDERED: JEVITY 1.2 1000 ML LIQUID GT PRN (10:00)
[2019-08-23] MEDS ORDERED: hydrALAZINE HCL 25 MG TABLET GT PRN (10:00)
[2019-08-23] MEDS ORDERED: OXYCODONE HCL 60 MG GT PRN (10:00)
[2019-08-23] MEDS ORDERED: levoFLOXacin 500 MG/D5W 500 MG in PREMIXED 1 EACH IV SCH (11:00)
[2019-08-23] MEDS: HYDROMORPHONE 1 MG/1 ML DISP.SYRIN IV PRN ×4 (11:18→20:47)
[2019-08-23] MEDS: levoFLOXacin 750MG/D5W 750 MG in PREMIXED 1 EACH IV SCH (12:19)
[2019-08-23] MEDS: POTASSIUM CHLORIDE 20 MEQ in IV NS 1000 ML 1,000 ML IV PRN (12:21)
[2019-08-23 12:25] LABS: LYMPHOCYTES % (MANUAL) 36 % (20-40); MONOCYTES % (MANUAL) 8 % (2-10); NEUTROPHILS % (MANUAL) 56 % (42-75)
[2019-08-23 15:54] VITALS: BP 112/61
[2019-08-23 15:54] LABS: *BILIRUBIN,URIN NEGATIVE (NEGATIVE); *CLARITY,URINE CLEAR (CLEAR); *COLOR,URINE YELLOW (YELLOW); *KETONES,URINE NEGATIVE (NEGATIVE); *UROBILINOGEN,URINE 0.2 E.U./dl (NORMAL); LEUKOCYTE ESTERASE ,URINE TRACE (NEGATIVE); NITRITE, URINE NEGATIVE (NEGATIVE); UGLUCOSE NEGATIVE (NEGATIVE)
[2019-08-23 15:58] LABS: *BLOOD, URINE TRACE (NEGATIVE)
[2019-08-23 17:26] LABS: BACTERIA,URINE NONE SEEN /HPF (NONE SEEN); RBC,URINE 0-3 /HPF (0-3); SQUAMOUS EPITHELIAL CELL,UR FEW /HPF (NONE SEEN)
[2019-08-23 17:27] LABS: MUCUS,URINE FEW /LPF (0-FEW)
[2019-08-23] MEDS: DOCUSATE SODIUM 100 MG/10 ML LIQUID UDC GT SCH (17:49)
[2019-08-23] MEDS: PANTOPRAZOLE ORAL SUSPENSION 40 MG SUSPDR.PKT GT SCH (17:49)
[2019-08-23] MEDS: ACIDOPHILUS/BULGARICUS CHEW TAB GT SCH (17:49)
--- NOTE | 2019-08-23 19:09 | NUR ---
Patient in bed, AO x 4 ,remains in no distress,no SOB , c/o pain through out the shift, PrN pain medication given as ordered , still gt feeding ,bed lock and bed in lowest position, call light in reach, will endorse to oncoming shift.
--- NOTE | 2019-08-23 19:30 | NUR ---
Received pt in bed, alert, awake. Pt complains of pain on his L side back, will assess and see if prescribed PRN pain medication is due/available, otherwise pt's vitals stable. Pt on room air and saturating WNL. Pt has a GJ tube in place, intact and patent. Patient claims he self-catheterize. LFA 20 intact with 20 Meqs KCL NS at 70cc. Safety measures in place. Personal belongings and call light within reach. Will continue with the plan of care.
[2019-08-23 20:00] VITALS: BP 115/58
[2019-08-23] MEDS: TAMSULOSIN HCL 0.4 MG CAP.SR.24H PO SCH (20:47)
[2019-08-23] MEDS: ONDANSETRON 4 MG/2 ML VIAL IV PRN (22:55)
[2019-08-24] VITALS: BP 129/63
[2019-08-24] MEDS: HYDROMORPHONE 1 MG/1 ML DISP.SYRIN IV PRN ×8 (00:18→21:51)
[2019-08-24 04:00] VITALS: BP 139/58
[2019-08-24] MEDS: POTASSIUM CHLORIDE 20 MEQ in IV NS 1000 ML 1,000 ML IV PRN ×2 (06:26→07:08)
--- NOTE | 2019-08-24 06:32 | NUR ---
Patient slept intermittently throughout the night. Patient is awake and denies any acute distress or pain at this time. Pt is Sinus Jayjay 50 on tele monitor. Vitals stable, on room air saturating WNL. GJ tube remained intact, but no feeding, refused by patient.Charge nurse aware. IV intact with 20Meqs KCL in NS at 70cc. Comfort care and needs attended. Pain managed effectively on my shift. Safety measures in place. Personal belongings and call light within reach. Will endorse to the oncoming nurse accordingly.
[2019-08-24 07:18] LABS: MAGNESIUM 1.8 mg/dL (1.8-2.4); PHOSPHOROUS 3.7 mg/dL (2.5-4.9)
[2019-08-24 07:28] LABS: BASOPHILS # (AUTO) 0.2 K/uL (0.0-8.0); EOSINOPHILS # (AUTO) 0.3 K/uL (0.0-0.7); EOSINOPHILS % (AUTO) 7.4 % (0.0-7.0); HEMOGLOBIN 9.4 g/dL (12.5-16.3); LYMPHOCYTES # (AUTO) 2.3 K/uL (20.0-40.0); LYMPHOCYTES % (AUTO) 49.8 % (20.5-51.5); MEAN CORPUSCULAR HEMOGLOBIN 20.9 uug (23.8-33.4); MEAN CORPUSCULAR HGB CONC 31 g/dL (32.5-36.3); MONOCYTES # (AUTO) 0.3 K/uL (2.0-10.0); NEUTROPHILS # (AUTO) 1.4 K/uL (1.8-8.9); NEUTROPHILS % (AUTO) 30.7 % (38.5-71.5); PLATELET COUNT (AUTO) 295 K/uL (152-348); RED BLOOD CELL COUNT(AUTO) 4.48 MIL/uL (4.06-5.63); WHITE BLOOD COUNT (AUTO) 4.5 K/uL (3.6-10.2)
--- NOTE | 2019-08-24 07:30 | NUR ---
Received pt in bed awake AOx4. On RA with no SOB or distress noted at this time. On tele SB 41-45, complained of being cold, covered with warm blanket. Dr. Leary informed and ordered to check HR again prior giving Dilaudid 2mg, next scheduled at 0930. Complained of 5/10 aching back pain at the moment. Bed locked in lowest position with siderails 2x up. Call light within reach.
[2019-08-24 08:00] VITALS: BP 109/49
--- NOTE | 2019-08-24 08:30 | NUR ---
Pt refused tube feeding at this time. Swallow evaluation will be done for oral gratification. made aware
[2019-08-24] MEDS: MIRALAX 17 GM POWD.PACK GT SCH ×2 (09:00→09:55)
--- NOTE | 2019-08-24 09:20 | NUR ---
HR running SB, 43-45. Informed Dr. Leary, and ordered to check BP prior to giving. BP 103/70. Pt stated feeling fine.
[2019-08-24 09:32] VITALS: BP 100/70
[2019-08-24] MEDS: FOLIC ACID 1 MG TABLET GT SCH (09:56)
[2019-08-24] MEDS: ACIDOPHILUS/BULGARICUS CHEW TAB GT SCH ×2 (09:56→16:54)
[2019-08-24] MEDS: DOCUSATE SODIUM 100 MG/10 ML LIQUID UDC GT SCH ×2 (09:56→16:54)
[2019-08-24] MEDS: PANTOPRAZOLE ORAL SUSPENSION 40 MG SUSPDR.PKT GT SCH ×2 (09:56→16:54)
[2019-08-24] MEDS: THIAMINE HCL 100 MG TABLET GT SCH (09:57)
--- NOTE | 2019-08-24 11:30 | NUR ---
Informed Dr. Nelson of SB, stated ok to give Dilaudid 2mg.
[2019-08-24] MEDS: ONDANSETRON 4 MG/2 ML VIAL IV PRN ×2 (14:14→18:51)
[2019-08-24 15:22] VITALS: BP 106/71
--- NOTE | 2019-08-24 19:30 | NUR ---
Received patient awake and alert x4. No signs of acute distress. Patient denies pain or SOB. color television console monitor on and showing sinus rhythm. Left forearm IV patent and intact. Bed rails up x2, bed is low and locked. Safety measures initiated and will continue to monitor.
--- NOTE | 2019-08-24 19:37 | NUR ---
Patient stable throughout shift, no SOB or distress. Tele SB throughout the shift but currently HR- 65. Complained of 10/10 crushing aching pain on left back, Dilaudid 2mg PRN given. Bed locked in lowest position with siderails 2x up. Call light within reach. Will endorse
[2019-08-24 20:00] VITALS: BP 105/56
[2019-08-24] MEDS: TAMSULOSIN HCL 0.4 MG CAP.SR.24H PO SCH (20:20)
[2019-08-24] MEDS: CARISOPRODOL 350 MG TABLET PO PRN (20:20)
[2019-08-24] MEDS: ZOLPIDEM 5 MG TABLET PO PRN (23:40)
[2019-08-25 00:30] VITALS: BP 138/72
[2019-08-25] MEDS: HYDROMORPHONE 1 MG/1 ML DISP.SYRIN IV PRN ×8 (00:55→21:56)
[2019-08-25 04:34] VITALS: BP 103/59
[2019-08-25] MEDS: CARISOPRODOL 350 MG TABLET PO PRN ×3 (05:59→22:30)
--- NOTE | 2019-08-25 06:12 | NUR ---
Patient experienced hematuria at 0400 with self cath. Requested to have a urine sample at bedside to show to the morning provider. Will endorse to oncoming staff.
[2019-08-25 06:15] LABS: BASOPHILS # (AUTO) 0.2 K/uL (0.0-8.0); EOSINOPHILS # (AUTO) 0.3 K/uL (0.0-0.7); EOSINOPHILS % (AUTO) 7.8 % (0.0-7.0); HEMATOCRIT 28.8 % (36.7-47.1); HEMOGLOBIN 9.1 g/dL (12.5-16.3); LYMPHOCYTES # (AUTO) 1.9 K/uL (20.0-40.0); LYMPHOCYTES % (AUTO) 46.9 % (20.5-51.5); MEAN CORPUSCULAR HEMOGLOBIN 21.1 uug (23.8-33.4); MEAN CORPUSCULAR HGB CONC 32 g/dL (32.5-36.3); MEAN CORPUSCULAR VOLUME 66.9 fL (73.0-96.2); MONOCYTES # (AUTO) 0.3 K/uL (2.0-10.0); MONOCYTES % (AUTO) 7.2 % (0.0-11.0); NEUTROPHILS # (AUTO) 1.3 K/uL (1.8-8.9); NEUTROPHILS % (AUTO) 32.6 % (38.5-71.5); PLATELET COUNT (AUTO) 255 K/uL (152-348); WHITE BLOOD COUNT (AUTO) 4.1 K/uL (3.6-10.2)
[2019-08-25 06:27] LABS: BILIRUBIN,TOTAL 0.3 mg/dL (0.2-1.0); CREATININE 1.1 mg/dL (0.6-1.3); MAGNESIUM 1.8 mg/dL (1.8-2.4); PHOSPHOROUS 3.9 mg/dL (2.5-4.9); POTASSIUM 3.7 mmol/L (3.5-5.1); TOTAL PROTEIN, SERUM 6.6 g/dL (6.4-8.2)
--- NOTE | 2019-08-25 08:00 | NUR ---
received pt. resting in bed alert oriented x4. pt. denies pain/ discomfort at this time. pt. denies SOB/ difficulty breathing. Pt. on room air saturating well. Pt. has G tube intact patent and is refusing feeding. Pt. does not want AM medications until dilaudid is due at 10 AM. IV in L forearm 20 gauge intact patent saline lock. safety measures in place. call light within reach. will continue to monitor pt.
[2019-08-25] MEDS: PANTOPRAZOLE ORAL SUSPENSION 40 MG SUSPDR.PKT GT SCH ×2 (08:25→18:55)
[2019-08-25] MEDS: ACIDOPHILUS/BULGARICUS CHEW TAB GT SCH ×2 (08:25→18:55)
[2019-08-25] MEDS: FOLIC ACID 1 MG TABLET GT SCH (08:25)
[2019-08-25] MEDS: DOCUSATE SODIUM 100 MG/10 ML LIQUID UDC GT SCH ×2 (08:25→18:56)
[2019-08-25] MEDS: THIAMINE HCL 100 MG TABLET GT SCH (08:25)
--- NOTE | 2019-08-25 09:38 | NUR ---
Blood pressure taken by physical therapy BP laying down is 110/59 HR 54. BP sitting is 79/34 HR 75. Physical therapy did not take BP standing as pt. became very dizzy.
[2019-08-25] MEDS: levoFLOXacin 750MG/D5W 750 MG in PREMIXED 1 EACH IV SCH (10:22)
[2019-08-25] MEDS: ONDANSETRON 4 MG/2 ML VIAL IV PRN (13:09)
[2019-08-25 15:59] VITALS: BP 99/43
--- NOTE | 2019-08-25 18:39 | NUR ---
pt. wants 1700 meds at 1900 with dilaudid. pt. does not want to be disturbed for 1700 med pass.
[2019-08-25 20:23] VITALS: BP 108/65
[2019-08-25] MEDS: TAMSULOSIN HCL 0.4 MG CAP.SR.24H PO SCH (21:48)
[2019-08-26 00:36] VITALS: BP 107/56
[2019-08-26] MEDS: HYDROMORPHONE 1 MG/1 ML DISP.SYRIN IV PRN ×8 (00:56→22:30)
[2019-08-26] MEDS: ZOLPIDEM 5 MG TABLET PO PRN (02:03)
[2019-08-26 05:18] VITALS: BP 120/57
[2019-08-26 08:00] VITALS: BP 109/56
--- NOTE | 2019-08-26 08:00 | NUR ---
Received pt in bed awake AOx4 on RA with no SOB or distress noted at this time. On tele SB. Still stated 8/10 pain on left shoulder and back, left arm in a sling. Dilaudid 2mg was just given by PM shift nurse. IV on left FA 20g flushed and patent. Bed locked in lowest position with siderails 2x up. Still refused Tube feeding at this time. will monitor
[2019-08-26] MEDS: THIAMINE HCL 100 MG TABLET GT SCH (08:42)
[2019-08-26] MEDS: ACIDOPHILUS/BULGARICUS CHEW TAB GT SCH ×2 (08:42→17:26)
[2019-08-26] MEDS: CARISOPRODOL 350 MG TABLET PO PRN ×2 (08:42→17:26)
[2019-08-26] MEDS: PANTOPRAZOLE ORAL SUSPENSION 40 MG SUSPDR.PKT GT SCH ×2 (08:42→17:26)
[2019-08-26] MEDS: FOLIC ACID 1 MG TABLET GT SCH (08:42)
[2019-08-26] MEDS: DOCUSATE SODIUM 100 MG/10 ML LIQUID UDC GT SCH ×2 (08:42→17:26)
[2019-08-26] MEDS: MIRALAX 17 GM POWD.PACK GT SCH (09:00)
[2019-08-26 11:44] VITALS: BP 106/56
[2019-08-26] MEDS: FLUDROCORTISONE ACETATE 0.1 MG TABLET PO SCH (12:34)
--- NOTE | 2019-08-26 12:40 | NUR ---
Dr. Leary called for a PT evaluation today to assess patient. Informed Jai PT, will return for assessment
[2019-08-26] MEDS: ONDANSETRON 4 MG/2 ML VIAL IV PRN ×2 (13:09→19:38)
--- NOTE | 2019-08-26 15:07 | NUR ---
DR. RUIZ FOR MRI APPROVAL.
[2019-08-26 16:00] VITALS: BP 107/57
--- NOTE | 2019-08-26 18:23 | NUR ---
[facility] picking machine operator helper for MRI is 08/27/2019 at 11:00 AM. Trip # [id number].
[2019-08-26 20:00] VITALS: BP 103/45
[2019-08-26] MEDS: TAMSULOSIN HCL 0.4 MG CAP.SR.24H PO SCH (20:39)
[2019-08-27] MEDS: CARISOPRODOL 350 MG TABLET PO PRN ×3 (00:21→22:15)
[2019-08-27] MEDS: ZOLPIDEM 5 MG TABLET PO PRN ×2 (00:21→23:23)
[2019-08-27] MEDS: HYDROMORPHONE 1 MG/1 ML DISP.SYRIN IV PRN ×8 (01:19→23:44)
[2019-08-27 04:00] VITALS: BP 101/60
[2019-08-27 06:51] LABS: BASOPHILS # (AUTO) 0.2 K/uL (0.0-8.0); EOSINOPHILS # (AUTO) 0.2 K/uL (0.0-0.7); EOSINOPHILS % (AUTO) 6.6 % (0.0-7.0); HEMATOCRIT 28.9 % (36.7-47.1); HEMOGLOBIN 8.9 g/dL (12.5-16.3); LYMPHOCYTES # (AUTO) 1.6 K/uL (20.0-40.0); LYMPHOCYTES % (AUTO) 47.9 % (20.5-51.5); MEAN CORPUSCULAR HEMOGLOBIN 20.7 uug (23.8-33.4); MEAN CORPUSCULAR HGB CONC 31 g/dL (32.5-36.3); MEAN CORPUSCULAR VOLUME 67.1 fL (73.0-96.2); MONOCYTES # (AUTO) 0.3 K/uL (2.0-10.0); MONOCYTES % (AUTO) 10.1 % (0.0-11.0); NEUTROPHILS % (AUTO) 29.5 % (38.5-71.5); PLATELET COUNT (AUTO) 221 K/uL (152-348); RED BLOOD CELL COUNT(AUTO) 4.31 MIL/uL (4.06-5.63); WHITE BLOOD COUNT (AUTO) 3.3 K/uL (3.6-10.2)
[2019-08-27 07:11] LABS: CREATININE 1.1 mg/dL (0.6-1.3); MAGNESIUM 1.9 mg/dL (1.8-2.4); PHOSPHOROUS 3.7 mg/dL (2.5-4.9); POTASSIUM 3.3 mmol/L (3.5-5.1)
--- NOTE | 2019-08-27 08:00 | NUR ---
Received patient resting in bed. no signs of respiratory distress noted at this time, patient is saturating well on room air. Iv in the left perla 20 gauge flushes wells and intact. patient reports pain level of 10, will administer pain medication as ordered. safety precautions in place, bed in lowest position and locked with call light and belongings within reach. Will continue to observe and monitor.
[2019-08-27] MEDS: ACIDOPHILUS/BULGARICUS CHEW TAB GT SCH ×2 (08:31→17:29)
[2019-08-27] MEDS: DOCUSATE SODIUM 100 MG/10 ML LIQUID UDC GT SCH ×2 (08:31→17:30)
[2019-08-27] MEDS: PANTOPRAZOLE ORAL SUSPENSION 40 MG SUSPDR.PKT GT SCH ×2 (08:32→17:30)
[2019-08-27] MEDS: FOLIC ACID 1 MG TABLET GT SCH (08:32)
[2019-08-27] MEDS: ONDANSETRON 4 MG/2 ML VIAL IV PRN ×3 (08:32→18:17)
[2019-08-27] MEDS: FLUDROCORTISONE ACETATE 0.1 MG TABLET PO SCH (08:32)
[2019-08-27] MEDS: THIAMINE HCL 100 MG TABLET GT SCH (08:32)
[2019-08-27] MEDS: MIRALAX 17 GM POWD.PACK GT SCH (08:50)
[2019-08-27 11:00] VITALS: BP 104/52
[2019-08-27] MEDS ORDERED: POTASSIUM CHLORIDE 20 MEQ POWDER PACKET GT ONE (11:45)
--- NOTE | 2019-08-27 11:45 | NUR ---
Patient picked up by ambulance and taken to [facility] for an MRI with or without contrast. Patient was given his routine dilaudid 2 mg prior to leaving because he complain of pain 10/10. Patient showed no sign of respiratory distress and was saturating well on room air.
[2019-08-27 13:00] LABS: EOSINOPHILS % (MANUAL) 5 % (0-8); LYMPHOCYTES % (MANUAL) 51 % (20-40); MONOCYTES % (MANUAL) 14 % (2-10); NEUTROPHILS % (MANUAL) 30 % (42-75)
--- NOTE | 2019-08-27 13:03 | NUR ---
Patient brought back by ambulance. Patient is stable at this time and resting in bed.
[2019-08-27] MEDS ORDERED: GADOTERIDOL 279.3 MG/ML, 15 ML VIAL IV ONE (13:18)
[2019-08-27 16:00] VITALS: BP 109/61
--- NOTE | 2019-08-27 18:18 | NUR ---
Patient is resting comfortably in bed. No sign of respiratory distress noted at this time, patient is saturation well on room air. Pain medication given as ordered. Will endorse to oncoming nurse.
[2019-08-27] MEDS: TAMSULOSIN HCL 0.4 MG CAP.SR.24H PO SCH (20:28)
[2019-08-27 20:43] VITALS: BP 104/53
[2019-08-28] MEDS: HYDROMORPHONE 1 MG/1 ML DISP.SYRIN IV PRN ×3 (02:45→08:44)
[2019-08-28 05:12] VITALS: BP 119/60
[2019-08-28] MEDS: FLUDROCORTISONE ACETATE 0.1 MG TABLET PO SCH (08:49)
[2019-08-28] MEDS: FOLIC ACID 1 MG TABLET GT SCH (08:49)
[2019-08-28] MEDS: PANTOPRAZOLE ORAL SUSPENSION 40 MG SUSPDR.PKT GT SCH ×2 (08:50→15:44)
[2019-08-28] MEDS: DOCUSATE SODIUM 100 MG/10 ML LIQUID UDC GT SCH ×2 (08:50→15:44)
[2019-08-28] MEDS: ACIDOPHILUS/BULGARICUS CHEW TAB GT SCH ×2 (08:50→15:44)
[2019-08-28] MEDS: THIAMINE HCL 100 MG TABLET GT SCH (08:50)
[2019-08-28] MEDS: MIRALAX 17 GM POWD.PACK GT SCH (09:00)
[2019-08-28] MEDS: CARISOPRODOL 350 MG TABLET PO PRN (09:07)
[2019-08-28] MEDS: HYDROMORPHONE HCL 2 MG TABLET PO PRN ×2 (11:37→15:45)
[2019-08-28 11:43] VITALS: BP 138/64
[2019-08-28] MEDS ORDERED: TAMS-3 PO (15:22)
[2019-08-28] MEDS ORDERED: FLUD0.1T3 PO (15:36)
[2019-08-28 15:55] VITALS: BP 133/52
--- NOTE | 2019-08-28 18:58 | NUR ---
Pt has remained stable throughout shift. medications taken crushed via GTube. Pt AAOx4. Pt seen by MD. Discharge order received. Discharge paperwork completed, discussed, and signed. Copies placed in chart. Pt refused skin integrity photos. Belongings accounted for and list signed. Report given to Kristy at [facility]. Discharge planning discussed at length with Pt. IV removed, intact. All safety precautions inplace. ID band removed. Pt safely transferred to [facility] with bending shed worker. Will remove Pt from system shortly.
== END 2019-08-28 19:00 | DRG 640 ==
LOC: ER 06:24 → TELE3 09:10 → MEDSURG3 08-26 22:20
PROVIDERS: ADMIT Internal Medicine; ATTEND Internal Medicine
DX: E86.0 Dehydration (principal); N17.0 Acute kidney failure with tubular necrosis; D68.69 Other thrombophilia; N39.0 Urinary tract infection, site not specified; F11.20 Opioid dependence, uncomplicated; I50.32 Chronic diastolic (congestive) heart failure; K51.90 Ulcerative colitis, unspecified, without complications; I95.1 Orthostatic hypotension; G89.4 Chronic pain syndrome; B96.1 Klebsiella pneumoniae [K. pneumoniae] as the cause of diseases classified elsewhere; B96.89 Other specified bacterial agents as the cause of diseases classified elsewhere; N40.1 Benign prostatic hyperplasia with lower urinary tract symptoms; D50.9 Iron deficiency anemia, unspecified; R33.8 Other retention of urine; Z93.1 Gastrostomy status; Z87.440 Personal history of urinary (tract) infections; Z76.5 Malingerer [conscious simulation]; R31.0 Gross hematuria; K21.0 Gastro-esophageal reflux disease with esophagitis; I11.0 Hypertensive heart disease with heart failure; R13.10 Dysphagia, unspecified; E86.1 Hypovolemia; E88.9 Metabolic disorder, unspecified; R91.8 Other nonspecific abnormal finding of lung field; R00.1 Bradycardia, unspecified
CPT/HCPCS: 36415; 70030-TC; 70450; 71045; 71250; 72125; 72131; 72158; 73030; 73502; 83735; 84100; 85025; 85730; 87086; 93005; 93307; A4217; A4663; A9579; G0378; J1170; J1956; J2405; J3480; J7030

== ENCOUNTER 2023-10-24 13:37 | Inpatient (IN) | payer MEDICARE, OTHER ==
[~2023-10-24] VITALS: Ht 170.2 cm; Wt 64.0 kg
[~2023-10-24 13:37] MED LIST changes: +AMLO10TA59 GT; -AMLO10TA7 GT; +BENZ5.1G; +DIAZ5TAB4 GT; -DIAZ5TAB4 PO; +DIPH1TAB GT; -DIPH1TAB PO; -FOLI1TAB16 GT; +FOLI1TAB94 GT; -HYDR-894; +HYDR-894 GT; -LEVO500T2 PO; +LEVO500T90 PO; +METO5SOL2 GT; -OXYC20TA42 GT; +OXYC30TA2 GT; -PHEN-704 PO; -SUCR1ORA15 PO; -THIA100T74 GT
[2023-10-24] MEDS ORDERED: NA P133E RC (14:09)
[2023-10-24] MEDS ORDERED: ACID1CAP3 GT (14:09)
[2023-10-24] MEDS ORDERED: LEVO50TA GT ×2 (14:09)
[2023-10-24] MEDS ORDERED: MAGN400O6 GT (14:09)
[2023-10-24] MEDS ORDERED: OMEP20TA5 GT (14:09)
[2023-10-24] MEDS ORDERED: DIATR MEGLU/DIATRIZOATE SODIUM 30 ML BOTTLE ONE (14:40)
[2023-10-24 14:48] LABS: BASOPHILS # (AUTO) 0.1 K/UL (0.0-0.2); BASOPHILS % (AUTO) 1.5 % (0.0-2.0); EOSINOPHILS # (AUTO) 0.1 K/uL (0.0-0.7); EOSINOPHILS % (AUTO) 1.6 % (0.0-7.0); HEMATOCRIT 36.9 % (36.7-47.1); HEMOGLOBIN 11.4 g/dL (12.5-16.3); LYMPHOCYTES # (AUTO) 1.1 K/uL (0.8-4.8); LYMPHOCYTES % (AUTO) 26.5 % (20.5-51.5); MEAN CORPUSCULAR HEMOGLOBIN 22.7 uug (23.8-33.4); MEAN CORPUSCULAR HGB CONC 31 g/dL (32.5-36.3); MEAN CORPUSCULAR VOLUME 73.4 fL (73.0-96.2); MONOCYTES # (AUTO) 0.3 K/uL (0.1-1.30); MONOCYTES % (AUTO) 8.4 % (0.0-11.0); NEUTROPHILS # (AUTO) 2.5 K/uL (1.8-8.9); PLATELET COUNT (AUTO) 255 K/uL (152-348); RED BLOOD CELL COUNT(AUTO) 5.02 MIL/uL (4.06-5.63); RED CELL DISTRIBUTION WIDTH 17.2 % (12.1-16.2); WHITE BLOOD COUNT (AUTO) 4.1 K/uL (3.6-10.2)
[2023-10-24 14:49] LABS: DIFFERENTIAL COMMENT 1
[2023-10-24 14:50] LABS: CALCIUM 8.7 mg/dL (8.5-10.1); CARBON DIOXIDE 26 mmol/L (21-32); CHLORIDE 104 mmol/L (98-107); CREATININE 0.7 mg/dL (0.6-1.3); GLUCOSE 88 mg/dL (74-106); POTASSIUM 3.3 mmol/L (3.5-5.1); SODIUM SERUM 140 mmol/L (136-145); UREA NITROGEN, BLOOD 16 mg/dL (7-18)
[2023-10-24 15:03] LABS: ALANINE AMINOTRANSFERASE 15 U/L (16-63); ALBUMIN 3.5 g/dL (3.4-5.0); ALKALINE PHOSPHATASE 78 U/L (50-136); ASPARTATE AMINOTRANSFERASE 5 U/L (15-37); BILIRUBIN,DIRECT 0.2 mg/dL (0.0-0.2); BILIRUBIN,TOTAL 0.9 mg/dL (0.2-1.0); NT-PRO BNP 126 pg/mL (0-125); TOTAL PROTEIN, SERUM 7.3 g/dL (6.4-8.2)
[2023-10-24 15:04] LABS: THYROID STIMULATING HORMONE 2.995 mIU/mL (0.358-3.740)
[2023-10-24] MEDS: DIATR MEGLU/DIATRIZOATE SODIUM 30 ML BOTTLE PO ONE (15:11)
[2023-10-24] MEDS ORDERED: KETOROLAC TROMETHAMINE 30 MG INJ ONE (16:28)
[2023-10-24] MEDS: KETOROLAC TROMETHAMINE 30 MG INJ IVP ONE (16:29)
[2023-10-24] MEDS ORDERED: CARISOPRODOL 350 MG TABLET PO PRN (16:30)
[2023-10-24] MEDS ORDERED: ACETAMINOPHEN 325 MG TABLET PO PRN (16:30)
[2023-10-24] MEDS ORDERED: REMEDY ESSENTIAL ZINC PASTE 113 GM TP PRN (16:30)
[2023-10-24] MEDS ORDERED: MAGNESIUM HYDROXIDE 30 ML LIQUID UDC PO PRN (16:30)
[2023-10-24] MEDS ORDERED: MAGNESIUM HYDROXIDE 30 ML LIQUID UDC GT PRN (16:30)
[2023-10-24] MEDS ORDERED: HYDROMORPHONE HCL 8 MG GT PRN (16:30)
[2023-10-24] MEDS: IV NS 1000 ML 1,000 ML IV PRN (16:58)
[2023-10-24] MEDS ORDERED: [UNRECOGNIZED DRUG - OTHER] GT SCH (17:00)
[2023-10-24] MEDS: DOCUSATE SODIUM 100 MG/10 ML LIQUID UDC GT SCH (17:00)
[2023-10-24] MEDS: DICYCLOMINE HCL 20 MG TABLET GT SCH (17:00)
[2023-10-24] MEDS ORDERED: Medication Not On Formulary EA (Lactobacillus Acidophilus (Probiotic) 1 EACH) GT SCH (17:00)
[2023-10-24] MEDS: ONDANSETRON 4 MG/2 ML VIAL IV PRN (17:13)
[2023-10-24] MEDS: POTASSIUM CHLORIDE 50 ML IV SCH (17:15)
[2023-10-24] MEDS ORDERED: CARISOPRODOL 350 MG TABLET GT PRN (17:30)
[2023-10-24] MEDS: METOCLOPRAMIDE HCL 10 MG/2 ML VIAL IV SCH (17:49)
[2023-10-24] MEDS: ACIDOPHILUS/BULGARICUS CHEW TAB GT SCH (17:49)
[2023-10-24] MEDS ORDERED: METOCLOPRAMIDE HCL 10 MG/10 ML UDC GT SCH (18:00)
[2023-10-24] MEDS: TAMSULOSIN HCL 0.4 MG CAP.SR.24H XX SCH (21:00)
[2023-10-24] MEDS: hydrALAZINE HCL 25 MG TABLET GT SCH (22:30)
[2023-10-24] MEDS: HYDROMORPHONE HCL 2 MG TABLET GT PRN (23:31)
[2023-10-25 06:36] LABS: BASOPHILS # (AUTO) 0.2 K/UL (0.0-0.2); BASOPHILS % (AUTO) 4.9 % (0.0-2.0); EOSINOPHILS # (AUTO) 0.1 K/uL (0.0-0.7); EOSINOPHILS % (AUTO) 3.1 % (0.0-7.0); HEMATOCRIT 35.2 % (36.7-47.1); HEMOGLOBIN 11.1 g/dL (12.5-16.3); LYMPHOCYTES # (AUTO) 1.3 K/uL (0.8-4.8); LYMPHOCYTES % (AUTO) 29.1 % (20.5-51.5); MEAN CORPUSCULAR HEMOGLOBIN 22.8 uug (23.8-33.4); MEAN CORPUSCULAR HGB CONC 31 g/dL (32.5-36.3); MEAN CORPUSCULAR VOLUME 72.6 fL (73.0-96.2); MONOCYTES # (AUTO) 0.4 K/uL (0.1-1.30); MONOCYTES % (AUTO) 9.7 % (0.0-11.0); NEUTROPHILS # (AUTO) 2.3 K/uL (1.8-8.9); NEUTROPHILS % (AUTO) 53.2 % (38.5-71.5); PLATELET COUNT (AUTO) 251 K/uL (152-348); RED BLOOD CELL COUNT(AUTO) 4.85 MIL/uL (4.06-5.63); RED CELL DISTRIBUTION WIDTH 17.3 % (12.1-16.2); WHITE BLOOD COUNT (AUTO) 4.3 K/uL (3.6-10.2)
[2023-10-25 06:50] LABS: DIFFERENTIAL COMMENT 1
[2023-10-25 07:10] LABS: ALBUMIN 3.2 g/dL (3.4-5.0); BILIRUBIN,TOTAL 0.6 mg/dL (0.2-1.0); CALCIUM 8.7 mg/dL (8.5-10.1); CREATININE 0.7 mg/dL (0.6-1.3); MAGNESIUM 2.2 mg/dL (1.8-2.4); PHOSPHOROUS 3.5 mg/dL (2.5-4.9); POTASSIUM 4.1 mmol/L (3.5-5.1)
[2023-10-25 08:00] VITALS: BP 136/72; TEMP 98.1; O2SAT 100
[2023-10-25 08:40] LABS: LYMPHOCYTES % (MANUAL) 40 % (20-40); MONOCYTES % (MANUAL) 9 % (2-10); NEUTROPHILS % (MANUAL) 49 % (42-75)
[2023-10-25 08:41] LABS: ANISOCYTOSIS 1+; EOSINOPHILS % (MANUAL) 2 % (0-8); HYPOCHROMASIA 2+; PLATELET ESTIMATE ADEQUATE
[2023-10-25] MEDS: PANTOPRAZOLE SODIUM 40 MG VIAL IV SCH (09:00)
[2023-10-25] MEDS: LEVOTHYROXINE SODIUM 50 MCG TABLET GT SCH (09:00)
[2023-10-25] MEDS ORDERED: PANTOPRAZOLE ORAL SUSPENSION 40 MG SUSPDR.PKT GT SCH (09:00)
[2023-10-25] MEDS ORDERED: Medication Not On Formulary EA (Omeprazole 20 MG) GT SCH (09:00)
[2023-10-25] MEDS: AMLODIPINE 10 MG TABLET GT SCH (09:00)
[2023-10-25] MEDS: MIRALAX 17 GM POWD.PACK GT SCH (09:00)
[2023-10-25] MEDS: FOLIC ACID 1 MG TABLET GT SCH (09:00)
[2023-10-25] MEDS: hydrALAZINE HCL 50 MG TABLET PO SCH (09:55)
[2023-10-25 11:33] VITALS: BP 121/70; TEMP 98.6; O2SAT 98
[2023-10-25] MEDS: HYDROMORPHONE 2 MG/1 ML DISP.SYRIN IV PRN (13:49)
[2023-10-25 16:00] VITALS: BP 114/72; TEMP 98.3; O2SAT 97
[2023-10-25 20:16] VITALS: BP 139/77; TEMP 98.2; O2SAT 98
[2023-10-25] MEDS: hydrALAZINE HCL 50 MG TABLET GT SCH (21:01)
[2023-10-26 03:55] VITALS: BP 137/68; TEMP 98.5; O2SAT 98
[2023-10-26 06:43] LABS: BASOPHILS # (AUTO) 0.2 K/UL (0.0-0.2); BASOPHILS % (AUTO) 3.2 % (0.0-2.0); EOSINOPHILS # (AUTO) 0.1 K/uL (0.0-0.7); EOSINOPHILS % (AUTO) 2.2 % (0.0-7.0); HEMOGLOBIN 10.4 g/dL (12.5-16.3); LYMPHOCYTES # (AUTO) 1.6 K/uL (0.8-4.8); MEAN CORPUSCULAR HEMOGLOBIN 22.8 uug (23.8-33.4); MEAN CORPUSCULAR HGB CONC 32 g/dL (32.5-36.3); MEAN CORPUSCULAR VOLUME 72.2 fL (73.0-96.2); MONOCYTES # (AUTO) 0.6 K/uL (0.1-1.30); MONOCYTES % (AUTO) 10.8 % (0.0-11.0); NEUTROPHILS # (AUTO) 2.9 K/uL (1.8-8.9); NEUTROPHILS % (AUTO) 53.8 % (38.5-71.5); PLATELET COUNT (AUTO) 247 K/uL (152-348); RED BLOOD CELL COUNT(AUTO) 4.57 MIL/uL (4.06-5.63); WHITE BLOOD COUNT (AUTO) 5.4 K/uL (3.6-10.2)
[2023-10-26 06:55] LABS: DIFFERENTIAL COMMENT 1
[2023-10-26] MEDS: LEVOTHYROXINE SODIUM 50 MCG TABLET GT SCH (07:00)
[2023-10-26 07:11] LABS: CALCIUM 8.5 mg/dL (8.5-10.1); CREATININE 0.9 mg/dL (0.6-1.3); MAGNESIUM 1.9 mg/dL (1.8-2.4); PHOSPHOROUS 3.2 mg/dL (2.5-4.9); POTASSIUM 3.6 mmol/L (3.5-5.1)
[2023-10-26 11:35] VITALS: BP 120/60; TEMP 98.8; O2SAT 97
[2023-10-26 16:00] VITALS: BP 157/61; TEMP 98.1; O2SAT 99
[2023-10-26 19:00] VITALS: BP 131/61; TEMP 98.7; O2SAT 96
[2023-10-27 06:00] VITALS: BP 128/71; TEMP 98.1; O2SAT 99
[2023-10-27 06:44] LABS: BASOPHILS # (AUTO) 0.2 K/UL (0.0-0.2); BASOPHILS % (AUTO) 3.7 % (0.0-2.0); EOSINOPHILS # (AUTO) 0.1 K/uL (0.0-0.7); EOSINOPHILS % (AUTO) 1.9 % (0.0-7.0); HEMATOCRIT 33.7 % (36.7-47.1); HEMOGLOBIN 10.8 g/dL (12.5-16.3); LYMPHOCYTES # (AUTO) 1.3 K/uL (0.8-4.8); LYMPHOCYTES % (AUTO) 26.8 % (20.5-51.5); MEAN CORPUSCULAR HEMOGLOBIN 23.1 uug (23.8-33.4); MEAN CORPUSCULAR HGB CONC 32 g/dL (32.5-36.3); MEAN CORPUSCULAR VOLUME 71.8 fL (73.0-96.2); MONOCYTES # (AUTO) 0.4 K/uL (0.1-1.30); MONOCYTES % (AUTO) 8.1 % (0.0-11.0); NEUTROPHILS # (AUTO) 2.9 K/uL (1.8-8.9); NEUTROPHILS % (AUTO) 59.5 % (38.5-71.5); PLATELET COUNT (AUTO) 266 K/uL (152-348); RED CELL DISTRIBUTION WIDTH 16.9 % (12.1-16.2); WHITE BLOOD COUNT (AUTO) 4.9 K/uL (3.6-10.2)
[2023-10-27 06:45] LABS: DIFFERENTIAL COMMENT 1
[2023-10-27 06:56] LABS: BILIRUBIN,TOTAL 0.5 mg/dL (0.2-1.0); CALCIUM 8.3 mg/dL (8.5-10.1); CREATININE 0.9 mg/dL (0.6-1.3); POTASSIUM 3.6 mmol/L (3.5-5.1); TOTAL PROTEIN, SERUM 6.4 g/dL (6.4-8.2)
[2023-10-27 09:03] LABS: LYMPHOCYTES % (MANUAL) 17 % (20-40); MONOCYTES % (MANUAL) 8 % (2-10); NEUTROPHILS % (MANUAL) 71 % (42-75)
[2023-10-27 09:04] LABS: ANISOCYTOSIS 1+; EOSINOPHILS % (MANUAL) 4 % (0-8); HYPOCHROMASIA 1+; PLATELET ESTIMATE ADEQUATE
[2023-10-27] MEDS ORDERED: PIPERACILLIN SODIUM/TAZOBACTAM 3.375 G in IV DEXTROSE 5% 50 ML IV SCH (10:00)
[2023-10-27 10:40] LABS: *BILIRUBIN,URIN NEGATIVE (NEGATIVE); *BLOOD, URINE NEGATIVE (NEGATIVE); *CLARITY,URINE CLEAR (CLEAR); *COLOR,URINE YELLOW (YELLOW); *KETONES,URINE TRACE (NEGATIVE); *PROTEIN,URINE NEGATIVE (NEGATIVE); *UROBILINOGEN,URINE 0.2 E.U./dl (NORMAL); LEUKOCYTE ESTERASE ,URINE 1+ (NEGATIVE); NITRITE, URINE NEGATIVE (NEGATIVE); PH,URINE 5.5 (5.0-8.0); UGLUCOSE NEGATIVE (NEGATIVE)
[2023-10-27 10:41] LABS: BACTERIA,URINE FEW /HPF (NONE SEEN); URINE AMORPHOUS URATE FEW /HPF; WBC,URINE 20-50 /HPF (0-3)
[2023-10-27] MEDS: LACTULOSE 20 G/30 ML LIQUID UDC PO ONE (10:48)
[2023-10-27] MEDS: PIPERACILLIN SODIUM/TAZOBACTAM 3.375 G in IV DEXTROSE 5% 100 ML IV SCH (10:48)
[2023-10-27 11:07] VITALS: BP 102/56; TEMP 98.2; O2SAT 99
[2023-10-27 13:46] LABS: THYROID STIMULATING HORMONE 2.929 mIU/mL (0.358-3.740)
[2023-10-27] MEDS ORDERED: IOHEXOL 350 100 ML INFUS..BTL ONE (13:53)
[2023-10-27] MEDS ORDERED: SWABABLE VALVE TRANSFER SET EA MC ONE (13:53)
[2023-10-27] MEDS ORDERED: IV NORMAL SALINE 250 ML IV ONE (13:55)
[2023-10-27] MEDS: HYDROMORPHONE 2 MG/1 ML DISP.SYRIN IV PRN (15:00)
[2023-10-27 15:03] VITALS: BP 115/69; TEMP 98; O2SAT 100
[2023-10-27 20:00] VITALS: BP 123/56; TEMP 98.5; O2SAT 99
[2023-10-28] MEDS: PIPERACILLIN SODIUM/TAZOBACTAM 3.375 G in IV DEXTROSE 5% 100 ML IV SCH (01:25)
[2023-10-28 07:01] VITALS: BP 107/61; TEMP 98.3; O2SAT 93
[2023-10-28 11:31] VITALS: BP 125/72; TEMP 98; O2SAT 97
[2023-10-28] MEDS: HYDROMORPHONE 2 MG/1 ML DISP.SYRIN IV PRN (14:12)
[2023-10-28 15:37] VITALS: BP 108/56; TEMP 98.2; O2SAT 98
[2023-10-28 20:06] VITALS: BP 139/68; TEMP 98.4; O2SAT 97
[2023-10-29] MEDS: PANTOPRAZOLE ORAL SUSPENSION 40 MG SUSPDR.PKT GT SCH (09:58)
[2023-10-29 12:00] VITALS: BP 105/55; TEMP 97.5; O2SAT 99
[2023-10-29] MEDS ORDERED: IV NORMAL SALINE 250 ML IV ONE (17:23)
[2023-10-29] MEDS ORDERED: IOHEXOL 350 100 ML INFUS..BTL ONE (17:23)
[2023-10-29] MEDS ORDERED: SWABABLE VALVE TRANSFER SET EA MC ONE (17:23)
[2023-10-29 20:25] VITALS: BP 128/68; TEMP 98.2; O2SAT 97
[2023-10-30 06:03] VITALS: BP 119/66; TEMP 98; O2SAT 97
[2023-10-30 08:00] VITALS: BP 109/68; TEMP 98.3; O2SAT 100
[2023-10-30 11:34] VITALS: BP 116/65; TEMP 98.3; O2SAT 97
[2023-10-30] MEDS ORDERED: LIDOCAINE HCL 1% 20 ML VIAL ONE (12:06)
[2023-10-30] MEDS ORDERED: BUPIVACAINE/EPI PF 0.25% 10 ML VIAL IJ ONE (12:06)
[2023-10-30] MEDS ORDERED: NEOMY/BACITRAC/POLYMI OINT 28.35 GM TUBE ONE (12:07)
[2023-10-30 12:46] LABS: CALCIUM 7.7 mg/dL (8.5-10.1); CREATININE 0.7 mg/dL (0.6-1.3); MAGNESIUM 1.3 mg/dL (1.8-2.4); POTASSIUM 3.9 mmol/L (3.5-5.1)
[2023-10-30] MEDS ORDERED: PROPOFOL 200 MG/20 ML BOTTLE ONE (13:00)
[2023-10-30 13:05] LABS: BASOPHILS # (AUTO) 0.3 K/UL (0.0-0.2); DIFFERENTIAL COMMENT 0; EOSINOPHILS # (AUTO) 0.1 K/uL (0.0-0.7); EOSINOPHILS % (AUTO) 3.7 % (0.0-7.0); HEMATOCRIT 33.9 % (36.7-47.1); HEMOGLOBIN 10.8 g/dL (12.5-16.3); LYMPHOCYTES # (AUTO) 1.1 K/uL (0.8-4.8); LYMPHOCYTES % (AUTO) 29.1 % (20.5-51.5); MEAN CORPUSCULAR HEMOGLOBIN 23.1 uug (23.8-33.4); MEAN CORPUSCULAR HGB CONC 32 g/dL (32.5-36.3); MEAN CORPUSCULAR VOLUME 72.3 fL (73.0-96.2); MONOCYTES # (AUTO) 0.4 K/uL (0.1-1.30); MONOCYTES % (AUTO) 10.5 % (0.0-11.0); PLATELET COUNT (AUTO) 298 K/uL (152-348); RED BLOOD CELL COUNT(AUTO) 4.68 MIL/uL (4.06-5.63); RED CELL DISTRIBUTION WIDTH 17.3 % (12.1-16.2); WHITE BLOOD COUNT (AUTO) 3.9 K/uL (3.6-10.2)
[2023-10-30] MEDS ORDERED: HYDROMORPHONE 2 MG/1 ML DISP.SYRIN ONE (13:14)
[2023-10-30] MEDS ORDERED: MIDAZOLAM HCL 2 MG/2 ML VIAL ONE ×2 (13:14→15:53)
[2023-10-30] MEDS ORDERED: FENTANYL CITRATE 100 MCG/2 ML AMPUL ONE ×2 (13:14→15:51)
[2023-10-30 15:11] LABS: ANISOCYTOSIS 2+; BAND % (MANUAL) 3 % (0-10); BASOPHILS % (MANUAL) 2 % (0-2); EOSINOPHILS % (MANUAL) 3 % (0-8); LYMPHOCYTES % (MANUAL) 25 % (20-40); MONOCYTES % (MANUAL) 10 % (2-10); NEUTROPHILS % (MANUAL) 55 % (42-75); PLATELET ESTIMATE ADEQUATE
[2023-10-30] MEDS ORDERED: ONDANSETRON 4 MG/2 ML VIAL ONE (15:43)
[2023-10-30] MEDS ORDERED: HYDROMORPHONE 1 MG/1 ML DISP.SYRIN ONE (15:46)
[2023-10-30] MEDS ORDERED: KETOROLAC TROMETHAMINE 30 MG INJ ONE (16:21)
[2023-10-30] MEDS: CELECOXIB 200 MG CAPSULE PO SCH (17:41)
[2023-10-30] MEDS: IV LACTATED RINGERS SOLUTION 1,000 ML IV PRN (17:42)
[2023-10-30] MEDS: CELECOXIB 200 MG CAPSULE GT SCH (17:59)
[2023-10-30] MEDS: CEFEPIME HCL 1 G in IV DEXTROSE 5% 50 ML IV SCH (20:27)
[2023-10-30 21:11] VITALS: BP 140/78; TEMP 98.3; O2SAT 98
[2023-10-31] MEDS: MAGNESIUM SULFATE/D5W 100 ML IV SCH (02:34)
[2023-10-31 05:20] VITALS: BP 166/83; O2SAT 98
[2023-10-31 08:10] LABS: BASOPHILS # (AUTO) 0.1 K/UL (0.0-0.2); EOSINOPHILS % (AUTO) 0.7 % (0.0-7.0); HEMATOCRIT 34.5 % (36.7-47.1); HEMOGLOBIN 10.9 g/dL (12.5-16.3); LYMPHOCYTES # (AUTO) 0.8 K/uL (0.8-4.8); LYMPHOCYTES % (AUTO) 12.8 % (20.5-51.5); MEAN CORPUSCULAR HGB CONC 32 g/dL (32.5-36.3); MONOCYTES # (AUTO) 0.7 K/uL (0.1-1.30); MONOCYTES % (AUTO) 10.6 % (0.0-11.0); NEUTROPHILS # (AUTO) 4.6 K/uL (1.8-8.9); NEUTROPHILS % (AUTO) 73.9 % (38.5-71.5); PLATELET COUNT (AUTO) 261 K/uL (152-348); RED BLOOD CELL COUNT(AUTO) 4.73 MIL/uL (4.06-5.63); RED CELL DISTRIBUTION WIDTH 17.6 % (12.1-16.2); WHITE BLOOD COUNT (AUTO) 6.3 K/uL (3.6-10.2)
[2023-10-31 08:14] LABS: CALCIUM 7.9 mg/dL (8.5-10.1); CREATININE 0.7 mg/dL (0.6-1.3); POTASSIUM 3.5 mmol/L (3.5-5.1)
[2023-10-31 08:15] LABS: DIFFERENTIAL COMMENT 1
[2023-10-31] MEDS: PANTOPRAZOLE SODIUM 40 MG VIAL IV SCH (10:02)
[2023-10-31 11:46] VITALS: BP 136/80; TEMP 98; O2SAT 99
[2023-10-31 16:10] VITALS: BP 158/82; TEMP 98; O2SAT 97
[2023-10-31] MEDS: CEFTRIAXONE 1 G in IV DEXTROSE 5% 50 ML IV SCH (20:31)
[2023-10-31 21:45] VITALS: BP 149/76; TEMP 97.8; O2SAT 100
[2023-11-01 05:29] VITALS: BP 151/77; TEMP 98; O2SAT 100
[2023-11-01 07:12] LABS: CALCIUM 8.3 mg/dL (8.5-10.1); CARBON DIOXIDE 25 mmol/L (21-32); CHLORIDE 103 mmol/L (98-107); CREATININE 0.5 mg/dL (0.6-1.3); GLUCOSE 74 mg/dL (74-106); POTASSIUM 3.9 mmol/L (3.5-5.1); SODIUM SERUM 136 mmol/L (136-145); UREA NITROGEN, BLOOD 6 mg/dL (7-18)
[2023-11-01 07:26] LABS: BASOPHILS # (AUTO) 0.2 K/UL (0.0-0.2); DIFFERENTIAL COMMENT 0; EOSINOPHILS % (AUTO) 0.5 % (0.0-7.0); HEMATOCRIT 34.7 % (36.7-47.1); HEMOGLOBIN 10.9 g/dL (12.5-16.3); LYMPHOCYTES # (AUTO) 0.8 K/uL (0.8-4.8); LYMPHOCYTES % (AUTO) 13.2 % (20.5-51.5); MEAN CORPUSCULAR HEMOGLOBIN 22.9 uug (23.8-33.4); MEAN CORPUSCULAR HGB CONC 31 g/dL (32.5-36.3); MONOCYTES # (AUTO) 0.6 K/uL (0.1-1.30); MONOCYTES % (AUTO) 10.9 % (0.0-11.0); NEUTROPHILS # (AUTO) 4.2 K/uL (1.8-8.9); NEUTROPHILS % (AUTO) 72.4 % (38.5-71.5); PLATELET COUNT (AUTO) 240 K/uL (152-348); RED BLOOD CELL COUNT(AUTO) 4.76 MIL/uL (4.06-5.63); RED CELL DISTRIBUTION WIDTH 17.7 % (12.1-16.2); WHITE BLOOD COUNT (AUTO) 5.8 K/uL (3.6-10.2)
[2023-11-01 09:50] LABS: LYMPHOCYTES % (MANUAL) 15 % (20-40); MONOCYTES % (MANUAL) 7 % (2-10); NEUTROPHILS % (MANUAL) 78 % (42-75); PLATELET ESTIMATE ADEQUATE
[2023-11-01 12:00] VITALS: BP 15/72; TEMP 97.8; O2SAT 98
[2023-11-02] MEDS ORDERED: PANTOPRAZOLE ORAL SUSPENSION 40 MG SUSPDR.PKT GT SCH (09:00)
== END 2023-11-01 17:00 | DRG 418 ==
LOC: ER 13:39 → MEDSURG3 16:29
PROVIDERS: ADMIT Nurse Practitioner Acute Care; ATTEND Nurse Practitioner Acute Care
PROC: 05HC33Z Insertion of Infusion Device into Left Basilic Vein, Percutaneous Approach (ICD-10-PCS; 2023-10-29)
PROC: 0FT44ZZ Resection of Gallbladder, Percutaneous Endoscopic Approach (ICD-10-PCS; principal; 2023-10-30)
PROC: 02HV33Z Insertion of Infusion Device into Superior Vena Cava, Percutaneous Approach (ICD-10-PCS; 2023-10-30)
DX: K80.10 Calculus of gallbladder with chronic cholecystitis without obstruction (principal); E44.0 Moderate protein-calorie malnutrition; I50.32 Chronic diastolic (congestive) heart failure; N39.0 Urinary tract infection, site not specified; F11.20 Opioid dependence, uncomplicated; K65.4 Sclerosing mesenteritis; K51.90 Ulcerative colitis, unspecified, without complications; Z66 Do not resuscitate; B96.20 Unspecified Escherichia coli [E. coli] as the cause of diseases classified elsewhere; Z68.22 Body mass index [BMI] 22.0-22.9, adult; G89.4 Chronic pain syndrome; K21.00 Gastro-esophageal reflux disease with esophagitis, without bleeding; E03.9 Hypothyroidism, unspecified; N40.0 Benign prostatic hyperplasia without lower urinary tract symptoms; Z79.890 Hormone replacement therapy; K44.9 Diaphragmatic hernia without obstruction or gangrene; K59.00 Constipation, unspecified; E88.09 Other disorders of plasma-protein metabolism, not elsewhere classified; E87.6 Hypokalemia; F43.23 Adjustment disorder with mixed anxiety and depressed mood; H54.61 Unqualified visual loss, right eye, normal vision left eye; F43.20 Adjustment disorder, unspecified; Z88.6 Allergy status to analgesic agent; R07.0 Pain in throat; R56.9 Unspecified convulsions; Z88.5 Allergy status to narcotic agent; Z88.8 Allergy status to other drugs, medicaments and biological substances; Z91.81 History of falling; Z93.1 Gastrostomy status; Z91.199 Patient's noncompliance with other medical treatment and regimen due to unspecified reason; Z85.118 Personal history of other malignant neoplasm of bronchus and lung; R13.10 Dysphagia, unspecified; I11.0 Hypertensive heart disease with heart failure; M54.41 Lumbago with sciatica, right side
CPT/HCPCS: 36415; 70030-TC; 70450; 70496; 71045; 74018; 78445; 82378; 83550; 83690; 83735; 83921; 84100; 84443; 84484; 85025; 85730; 93005; A4606; A4663; A9537; G0378; J0330; J0690; J0692; J0696; J1170; J1885; J2250; J2405; J2470; J2543; J2765; J3010; J3475; J3490; J7040; J7042; J7120; J8597; Q9963; Q9967

== ENCOUNTER 2023-11-02 09:20 | Inpatient (IN) | payer MEDICARE, OTHER ==
[~2023-11-02] VITALS: Ht 170.2 cm; Wt 63.0 kg
[~2023-11-02 09:20] MED LIST changes: +ACID1CAP3 GT; +CARI350T GT; -CARI350T PO; -DIAZ5TAB4 GT; -DICY20TA11 GT; -DIPH1TAB GT; -LACT-209 GT; -LACT1CAP69 GT; -LEVO500T90 PO; +LEVO50TA GT; +MAGN400O6 GT; -METO5SOL2 GT; +NA P133E RC; +OMEP20TA5 GT; -ONDA4TAB5 GT; -OPIU1SUP RC; -PANT40SU2 GT
[2023-11-02 09:57] LABS: BASOPHILS # (AUTO) 0.1 K/UL (0.0-0.2); BASOPHILS % (AUTO) 1.2 % (0.0-2.0); EOSINOPHILS % (AUTO) 0.5 % (0.0-7.0); HEMATOCRIT 37.5 % (36.7-47.1); HEMOGLOBIN 11.7 g/dL (12.5-16.3); LYMPHOCYTES # (AUTO) 0.7 K/uL (0.8-4.8); LYMPHOCYTES % (AUTO) 8.5 % (20.5-51.5); MEAN CORPUSCULAR HGB CONC 31 g/dL (32.5-36.3); MEAN CORPUSCULAR VOLUME 73.6 fL (73.0-96.2); MONOCYTES # (AUTO) 0.5 K/uL (0.1-1.30); MONOCYTES % (AUTO) 6.1 % (0.0-11.0); NEUTROPHILS # (AUTO) 6.8 K/uL (1.8-8.9); NEUTROPHILS % (AUTO) 83.7 % (38.5-71.5); PLATELET COUNT (AUTO) 326 K/uL (152-348); RED BLOOD CELL COUNT(AUTO) 5.09 MIL/uL (4.06-5.63); RED CELL DISTRIBUTION WIDTH 17.7 % (12.1-16.2); WHITE BLOOD COUNT (AUTO) 8.1 K/uL (3.6-10.2)
[2023-11-02 09:58] LABS: DIFFERENTIAL COMMENT 1
[2023-11-02 10:09] LABS: CARBON DIOXIDE 19 mmol/L (21-32); CHLORIDE 101 mmol/L (98-107); CREATININE 0.6 mg/dL (0.6-1.3); GLUCOSE 81 mg/dL (74-106); POTASSIUM 3.6 mmol/L (3.5-5.1); SODIUM SERUM 135 mmol/L (136-145); UREA NITROGEN, BLOOD 11 mg/dL (7-18)
[2023-11-02] MEDS ORDERED: ONDANSETRON 4 MG/2 ML VIAL ONE (10:59)
[2023-11-02] MEDS ORDERED: HYDROMORPHONE 1 MG/1 ML DISP.SYRIN ONE (10:59)
[2023-11-02] MEDS: IV NORMAL SALINE 1000 ML BAG IV ONE (11:10)
[2023-11-02] MEDS: ONDANSETRON 4 MG/2 ML VIAL IV ONE (11:10)
[2023-11-02] MEDS: HYDROMORPHONE 1 MG/1 ML DISP.SYRIN IV ONE (11:10)
[2023-11-02] MEDS ORDERED: PROPOFOL 200 MG/20 ML BOTTLE ONE (11:20)
[2023-11-02] MEDS ORDERED: PANTOPRAZOLE SODIUM IV 40 MG in IV DEXTROSE 5% 100 ML IV ONE (12:00)
[2023-11-02] MEDS ORDERED: PANTOPRAZOLE SODIUM 40 MG VIAL ONE (12:07)
[2023-11-02] MEDS: PANTOPRAZOLE SODIUM 40 MG VIAL IV ONE (12:08)
[2023-11-02 16:31] VITALS: BP 168/96; TEMP 97.5; O2SAT 96
[2023-11-02] MEDS: HYDROMORPHONE 2 MG/1 ML DISP.SYRIN IV PRN (17:14)
[2023-11-02] MEDS ORDERED: FLEET ENEMA 133 ML BOTTLE RC PRN (17:30)
[2023-11-02] MEDS: POTASSIUM CHLORIDE 20 MEQ in IV D5 1/2 NS 1000 ML 1,000 ML IV PRN (18:09)
[2023-11-02] MEDS: CLONIDINE-TTS 1 PATCH TD SCH (18:10)
[2023-11-02 20:00] VITALS: BP 167/97; TEMP 98; O2SAT 99
[2023-11-02 21:30] VITALS: BP 152/75; O2SAT 97
[2023-11-03] MEDS: ONDANSETRON 4 MG/2 ML VIAL IV PRN (05:33)
[2023-11-03 06:00] VITALS: BP 155/75; TEMP 98.2; O2SAT 91
[2023-11-03 07:51] LABS: BASOPHILS # (AUTO) 0.2 K/UL (0.0-0.2); BASOPHILS % (AUTO) 4.1 % (0.0-2.0); EOSINOPHILS # (AUTO) 0.2 K/uL (0.0-0.7); EOSINOPHILS % (AUTO) 3.5 % (0.0-7.0); HEMATOCRIT 31.8 % (36.7-47.1); LYMPHOCYTES % (AUTO) 19.2 % (20.5-51.5); MEAN CORPUSCULAR HEMOGLOBIN 23.2 uug (23.8-33.4); MEAN CORPUSCULAR HGB CONC 32 g/dL (32.5-36.3); MEAN CORPUSCULAR VOLUME 73.7 fL (73.0-96.2); MONOCYTES # (AUTO) 0.5 K/uL (0.1-1.30); MONOCYTES % (AUTO) 8.8 % (0.0-11.0); NEUTROPHILS # (AUTO) 3.5 K/uL (1.8-8.9); NEUTROPHILS % (AUTO) 64.4 % (38.5-71.5); PLATELET COUNT (AUTO) 271 K/uL (152-348); RED BLOOD CELL COUNT(AUTO) 4.32 MIL/uL (4.06-5.63); RED CELL DISTRIBUTION WIDTH 17.4 % (12.1-16.2); WHITE BLOOD COUNT (AUTO) 5.4 K/uL (3.6-10.2)
[2023-11-03 08:09] LABS: DIFFERENTIAL COMMENT 1
[2023-11-03 08:44] LABS: ALANINE AMINOTRANSFERASE 16 U/L (16-63); ALBUMIN 2.4 g/dL (3.4-5.0); ALKALINE PHOSPHATASE 63 U/L (50-136); ASPARTATE AMINOTRANSFERASE 14 U/L (15-37); BILIRUBIN,TOTAL 0.6 mg/dL (0.2-1.0); CALCIUM 8.1 mg/dL (8.5-10.1); CARBON DIOXIDE 19 mmol/L (21-32); CHLORIDE 103 mmol/L (98-107); CHOLESTEROL 130 mg/dL (<200); CREATININE 0.6 mg/dL (0.6-1.3); GLUCOSE 54 mg/dL (74-106); HDL CHOLESTEROL 60 mg/dL (40-60); MAGNESIUM 1.8 mg/dL (1.8-2.4); PHOSPHOROUS 1.7 mg/dL (2.5-4.9); POTASSIUM 4.8 mmol/L (3.5-5.1); SODIUM SERUM 134 mmol/L (136-145); TOTAL PROTEIN, SERUM 6.3 g/dL (6.4-8.2); TRIGLYCERIDES 100 MG/DL (30-150); UREA NITROGEN, BLOOD 8 mg/dL (7-18)
[2023-11-03] MEDS: PANTOPRAZOLE SODIUM 40 MG VIAL IV SCH (08:53)
[2023-11-03 10:32] LABS: EOSINOPHILS % (MANUAL) 1 % (0-8); LYMPHOCYTES % (MANUAL) 17 % (20-40); MONOCYTES % (MANUAL) 12 % (2-10); NEUTROPHILS % (MANUAL) 70 % (42-75)
[2023-11-03 10:33] LABS: ANISOCYTOSIS 1+; HYPOCHROMASIA 1+; PLATELET ESTIMATE ADEQUATE
[2023-11-03 11:55] VITALS: BP 135/71; TEMP 98.2; O2SAT 97
[2023-11-03 16:00] VITALS: BP 121/68; TEMP 98.2; O2SAT 97
[2023-11-03] MEDS: SODIUM PHOSPHATE MM 15 MMOL in IV NORMAL SALINE 250 ML IV ONE (17:20)
[2023-11-03] MEDS: IV D5 1/2 NS 1000 ML 1,000 ML IV PRN (17:26)
[2023-11-03 20:22] VITALS: BP 126/72; TEMP 98.5; O2SAT 95
[2023-11-04 06:08] VITALS: BP 146/72; TEMP 98.6; O2SAT 98
[2023-11-04 07:31] LABS: BASOPHILS % (AUTO) 0.4 % (0.0-2.0); EOSINOPHILS # (AUTO) 0.3 K/uL (0.0-0.7); EOSINOPHILS % (AUTO) 6.1 % (0.0-7.0); HEMATOCRIT 30.9 % (36.7-47.1); HEMOGLOBIN 9.9 g/dL (12.5-16.3); LYMPHOCYTES # (AUTO) 1.1 K/uL (0.8-4.8); LYMPHOCYTES % (AUTO) 24.5 % (20.5-51.5); MEAN CORPUSCULAR HEMOGLOBIN 23.4 uug (23.8-33.4); MEAN CORPUSCULAR HGB CONC 32 g/dL (32.5-36.3); MEAN CORPUSCULAR VOLUME 72.7 fL (73.0-96.2); MONOCYTES # (AUTO) 0.4 K/uL (0.1-1.30); MONOCYTES % (AUTO) 9.4 % (0.0-11.0); NEUTROPHILS # (AUTO) 2.7 K/uL (1.8-8.9); NEUTROPHILS % (AUTO) 59.6 % (38.5-71.5); PLATELET COUNT (AUTO) 275 K/uL (152-348); RED BLOOD CELL COUNT(AUTO) 4.25 MIL/uL (4.06-5.63); RED CELL DISTRIBUTION WIDTH 17.4 % (12.1-16.2); WHITE BLOOD COUNT (AUTO) 4.5 K/uL (3.6-10.2)
[2023-11-04 07:36] LABS: DIFFERENTIAL COMMENT 1
[2023-11-04 08:17] LABS: CALCIUM 7.6 mg/dL (8.5-10.1); CARBON DIOXIDE 26 mmol/L (21-32); CHLORIDE 105 mmol/L (98-107); CREATININE 0.6 mg/dL (0.6-1.3); GLUCOSE 230 mg/dL (74-106); PHOSPHOROUS 2.9 mg/dL (2.5-4.9); POTASSIUM 3.2 mmol/L (3.5-5.1); SODIUM SERUM 139 mmol/L (136-145); UREA NITROGEN, BLOOD 5 mg/dL (7-18)
[2023-11-04] MEDS: MAGNESIUM SULFATE/D5W 100 ML IV SCH (09:39)
[2023-11-04] MEDS ORDERED: POTASSIUM CHLORIDE 50 ML IV SCH (11:00)
[2023-11-04] MEDS ORDERED: MIDAZOLAM HCL 2 MG/2 ML VIAL ONE (11:14)
[2023-11-04] MEDS: POTASSIUM CHLORIDE 50 ML IV SCH (13:00)
[2023-11-04 16:00] VITALS: BP 118/70; TEMP 98.4; O2SAT 96
[2023-11-04 19:43] VITALS: BP 127/75; TEMP 98.5; O2SAT 96
[2023-11-05 06:22] VITALS: BP 141/65; TEMP 98.4; O2SAT 97
[2023-11-05 11:46] VITALS: BP 149/72; TEMP 97.9; O2SAT 98
[2023-11-05] MEDS ORDERED: IV NORMAL SALINE 250 ML IV ONE (14:05)
[2023-11-05] MEDS ORDERED: IOHEXOL 300MG/ML 100 ML INFUS..BTL ONE (14:05)
[2023-11-05] MEDS ORDERED: SWABABLE VALVE TRANSFER SET EA MC ONE (14:05)
[2023-11-05 15:53] VITALS: BP 106/69; TEMP 98.7; O2SAT 99
[2023-11-05] MEDS ORDERED: CEFT1VIA14 IV (16:08)
[2023-11-05] MEDS ORDERED: CELE200C GT (16:19)
[2023-11-05 19:55] VITALS: BP 138/69; TEMP 97.7; O2SAT 99
[2023-11-05] MEDS: PIPERACILLIN SODIUM/TAZOBACTAM 3.375 G in IV DEXTROSE 5% 100 ML IV SCH (21:01)
[2023-11-05] MEDS ORDERED: PIPERACILLIN SODIUM/TAZOBACTAM 3.375 G in IV DEXTROSE 5% 50 ML IV SCH (22:00)
[2023-11-06 05:23] VITALS: BP 126/70; TEMP 98; O2SAT 98
[2023-11-06] MEDS: PANTOPRAZOLE SODIUM 40 MG TABLET.DR PO SCH (06:02)
[2023-11-06 06:39] LABS: ALANINE AMINOTRANSFERASE 9 U/L (16-63); ALBUMIN 2.5 g/dL (3.4-5.0); ALKALINE PHOSPHATASE 61 U/L (50-136); BASOPHILS % (AUTO) 0.3 % (0.0-2.0); BILIRUBIN,TOTAL 0.4 mg/dL (0.2-1.0); CALCIUM 7.8 mg/dL (8.5-10.1); CARBON DIOXIDE 30 mmol/L (21-32); CHLORIDE 104 mmol/L (98-107); CREATININE 0.7 mg/dL (0.6-1.3); EOSINOPHILS # (AUTO) 0.5 K/uL (0.0-0.7); EOSINOPHILS % (AUTO) 8.9 % (0.0-7.0); GLUCOSE 82 mg/dL (74-106); HEMATOCRIT 33.4 % (36.7-47.1); HEMOGLOBIN 10.6 g/dL (12.5-16.3); LYMPHOCYTES # (AUTO) 1.7 K/uL (0.8-4.8); LYMPHOCYTES % (AUTO) 30.9 % (20.5-51.5); MAGNESIUM 2.2 mg/dL (1.8-2.4); MEAN CORPUSCULAR HEMOGLOBIN 22.9 uug (23.8-33.4); MEAN CORPUSCULAR HGB CONC 32 g/dL (32.5-36.3); MEAN CORPUSCULAR VOLUME 71.9 fL (73.0-96.2); MONOCYTES # (AUTO) 0.7 K/uL (0.1-1.30); MONOCYTES % (AUTO) 11.8 % (0.0-11.0); NEUTROPHILS # (AUTO) 2.7 K/uL (1.8-8.9); NEUTROPHILS % (AUTO) 48.1 % (38.5-71.5); PHOSPHOROUS 3.3 mg/dL (2.5-4.9); PLATELET COUNT (AUTO) 312 K/uL (152-348); POTASSIUM 4.4 mmol/L (3.5-5.1); RED BLOOD CELL COUNT(AUTO) 4.64 MIL/uL (4.06-5.63); RED CELL DISTRIBUTION WIDTH 17.3 % (12.1-16.2); SODIUM SERUM 138 mmol/L (136-145); TOTAL PROTEIN, SERUM 6.2 g/dL (6.4-8.2); UREA NITROGEN, BLOOD 6 mg/dL (7-18); WHITE BLOOD COUNT (AUTO) 5.6 K/uL (3.6-10.2)
[2023-11-06 06:49] LABS: ASPARTATE AMINOTRANSFERASE < 5 U/L (15-37)
[2023-11-06 06:58] LABS: DIFFERENTIAL COMMENT 1
[2023-11-06 08:00] VITALS: BP 148/73; TEMP 97.6; O2SAT 97
[2023-11-06] MEDS: PANTOPRAZOLE SODIUM 40 MG VIAL IV SCH (11:06)
[2023-11-06 12:08] VITALS: BP 133/64; TEMP 97.6; O2SAT 99
[2023-11-06 15:54] VITALS: BP 157/77; TEMP 97.8; O2SAT 97
[2023-11-06 21:00] VITALS: BP 148/68; TEMP 97.8; O2SAT 98
[2023-11-06] MEDS: JEVITY 1.2 1000 ML LIQUID GT PRN (21:09)
[2023-11-07 06:46] VITALS: BP 150/82; TEMP 98.3; O2SAT 98
[2023-11-07] MEDS ORDERED: JEVITY 1.2 1000 ML LIQUID GT PRN (08:07)
[2023-11-07] MEDS: CYANOCOBALAMIN 1000 MCG/ML VIAL IM SCH (08:50)
[2023-11-07 09:00] VITALS: BP 123/6; TEMP 98; O2SAT 5
[2023-11-07 11:36] VITALS: BP 125/65; TEMP 98.4; O2SAT 98
[2023-11-07 16:00] VITALS: BP 115/64; TEMP 98.2; O2SAT 97
[2023-11-07 20:05] VITALS: BP 122/73; TEMP 98.8; O2SAT 97
[2023-11-08 04:52] VITALS: BP 124/69; TEMP 98.6; O2SAT 96
[2023-11-08 06:59] LABS: BASOPHILS # (AUTO) 0.1 K/UL (0.0-0.2); BASOPHILS % (AUTO) 2.3 % (0.0-2.0); EOSINOPHILS # (AUTO) 0.5 K/uL (0.0-0.7); EOSINOPHILS % (AUTO) 12.6 % (0.0-7.0); HEMATOCRIT 31.6 % (36.7-47.1); LYMPHOCYTES # (AUTO) 1.1 K/uL (0.8-4.8); LYMPHOCYTES % (AUTO) 26.1 % (20.5-51.5); MEAN CORPUSCULAR HEMOGLOBIN 23.3 uug (23.8-33.4); MEAN CORPUSCULAR HGB CONC 32 g/dL (32.5-36.3); MEAN CORPUSCULAR VOLUME 73.2 fL (73.0-96.2); MONOCYTES # (AUTO) 0.5 K/uL (0.1-1.30); MONOCYTES % (AUTO) 11.8 % (0.0-11.0); NEUTROPHILS % (AUTO) 47.2 % (38.5-71.5); PLATELET COUNT (AUTO) 265 K/uL (152-348); RED BLOOD CELL COUNT(AUTO) 4.32 MIL/uL (4.06-5.63); RED CELL DISTRIBUTION WIDTH 17.6 % (12.1-16.2); WHITE BLOOD COUNT (AUTO) 4.2 K/uL (3.6-10.2)
[2023-11-08 07:08] LABS: DIFFERENTIAL COMMENT 1
[2023-11-08 07:26] LABS: THYROID STIMULATING HORMONE 19.416 mIU/mL (0.358-3.740)
[2023-11-08 07:38] LABS: ALBUMIN 2.4 g/dL (3.4-5.0); CALCIUM 7.9 mg/dL (8.5-10.1); CREATININE 0.7 mg/dL (0.6-1.3); MAGNESIUM 2.2 mg/dL (1.8-2.4); PHOSPHOROUS 3.4 mg/dL (2.5-4.9)
[2023-11-08] MEDS ORDERED: CYANOCOBALAMIN 1,000 MCG TABLET PO SCH (09:00)
[2023-11-08] MEDS ORDERED: OXYC30TA2 GT (11:37)
[2023-11-08] MEDS ORDERED: HYDR8TAB2 GT (11:37)
[2023-11-08] MEDS ORDERED: CYAN10006 IM (11:37)
[2023-11-08] MEDS ORDERED: PIPE3.379 IV (11:37)
[2023-11-08] MEDS ORDERED: LEVO75TA7 GT (11:37)
[2023-11-08 13:49] LABS: BAND % (MANUAL) 2 % (0-10); EOSINOPHILS % (MANUAL) 11 % (0-8); LYMPHOCYTES % (MANUAL) 25 % (20-40); MONOCYTES % (MANUAL) 13 % (2-10); NEUTROPHILS % (MANUAL) 49 % (42-75); PLATELET ESTIMATE ADEQUATE
[2023-11-08 13:50] LABS: ANISOCYTOSIS 1+; HYPOCHROMASIA 1+
[2023-11-08 16:07] VITALS: BP 124/68; TEMP 98.6; O2SAT 97
[2023-11-09 06:07] LABS: FOLATE (FOLIC ACID), SERUM 2.1 ng/mL (>3.0)
[2023-11-09] MEDS ORDERED: LEVOTHYROXINE SODIUM 75 MCG TABLET GT SCH (07:00)
[2023-11-09 08:09] LABS: *IMMUNOGLOBULIN G, SERUM 1120 mg/dL (603-1613); IMMUNOGLOBULIN A, SERUM 237 mg/dL (90-386); IMMUNOGLOBULIN M, SERUM 61 mg/dL (20-172)
[2023-11-09] MEDS ORDERED: PANTOPRAZOLE ORAL SUSPENSION 40 MG SUSPDR.PKT GT SCH (09:00)
[2023-11-09 15:07] LABS: A/G RATIO 0.8 (0.7-1.7); ALBUMIN 2.4 g/dL (2.9-4.4); ALPHA-1-GLOBULIN 0.3 g/dL (0.0-0.4); ALPHA-2-GLOBULIN 0.8 g/dL (0.4-1.0); GAMMA GLOBULIN 1.1 g/dL (0.4-1.8); GLOBULIN, TOTAL 3.2 g/dL (2.2-3.9); M-SPIKE Not Observed g/dL (Not Observed)
== END 2023-11-08 18:40 | DRG 394 ==
LOC: ER 09:20 → MEDSURG3 15:40
PROVIDERS: ADMIT Internal Medicine; ATTEND Internal Medicine
PROC: 0DH68UZ Insertion of Feeding Device into Stomach, Via Natural or Artificial Opening Endoscopic (ICD-10-PCS; principal; 2023-11-04)
DX: Z43.1 Encounter for attention to gastrostomy (principal); D68.59 Other primary thrombophilia; K91.872 Postprocedural seroma of a digestive system organ or structure following a digestive system procedure; M51.06 Intervertebral disc disorders with myelopathy, lumbar region; F11.20 Opioid dependence, uncomplicated; K51.911 Ulcerative colitis, unspecified with rectal bleeding; I50.32 Chronic diastolic (congestive) heart failure; D68.9 Coagulation defect, unspecified; J98.11 Atelectasis; R13.10 Dysphagia, unspecified; Z74.09 Other reduced mobility; M51.16 Intervertebral disc disorders with radiculopathy, lumbar region; K59.09 Other constipation; I65.23 Occlusion and stenosis of bilateral carotid arteries; M48.56XD Collapsed vertebra, not elsewhere classified, lumbar region, subsequent encounter for fracture with routine healing; E03.9 Hypothyroidism, unspecified; G89.4 Chronic pain syndrome; Z87.440 Personal history of urinary (tract) infections; F32.A Depression, unspecified; F41.9 Anxiety disorder, unspecified; G47.00 Insomnia, unspecified; E53.8 Deficiency of other specified B group vitamins; D50.9 Iron deficiency anemia, unspecified; K29.70 Gastritis, unspecified, without bleeding; R22.2 Localized swelling, mass and lump, trunk; R91.1 Solitary pulmonary nodule; K21.9 Gastro-esophageal reflux disease without esophagitis; K44.9 Diaphragmatic hernia without obstruction or gangrene; I11.0 Hypertensive heart disease with heart failure; E87.8 Other disorders of electrolyte and fluid balance, not elsewhere classified; M81.0 Age-related osteoporosis without current pathological fracture; Z80.0 Family history of malignant neoplasm of digestive organs; E88.09 Other disorders of plasma-protein metabolism, not elsewhere classified; E78.5 Hyperlipidemia, unspecified; D72.821 Monocytosis (symptomatic); I25.10 Atherosclerotic heart disease of native coronary artery without angina pectoris; R94.31 Abnormal electrocardiogram [ECG] [EKG]; N40.1 Benign prostatic hyperplasia with lower urinary tract symptoms; R33.8 Other retention of urine; Z82.49 Family history of ischemic heart disease and other diseases of the circulatory system; Z82.61 Family history of arthritis; Z79.890 Hormone replacement therapy; Z79.899 Other long term (current) drug therapy; Z88.6 Allergy status to analgesic agent; Z90.49 Acquired absence of other specified parts of digestive tract; Z91.81 History of falling
CPT/HCPCS: 36415; 43235; 43761; 70030-TC; 71045; 71260; 82378; 82746; 82784; 83550; 83735; 84100; 84153; 84155; 84165; 84443; 85025; 85730; 86334; A4663; G0378; J1170; J2250; J2405; J2470; J2543; J3420; J3475; J3480; J3490; J7040; Q9967

== ENCOUNTER 2024-06-08 14:53 | Inpatient (IN) | payer MEDICARE, OTHER ==
[~2024-06-08] VITALS: Ht 162.6 cm; Wt 64.9 kg
[~2024-06-08 14:53] MED LIST changes: -BENZ5.1G; +CYAN10006 IM; -HYDR4TAB4 GT; +HYDR8TAB2 GT; -LEVO50TA GT; +LEVO75TA7 GT; +PIPE3.379 IV
[2024-06-08] MEDS ORDERED: METO25TA6 GT (15:19)
[2024-06-08] MEDS ORDERED: AMOX500C2 GT (15:19)
[2024-06-08] MEDS ORDERED: BENZ11.95 TOP (15:19)
[2024-06-08] MEDS ORDERED: ONDA4TAB5 GT (15:19)
[2024-06-08] MEDS ORDERED: OXYC30TA2 GT (15:19)
[2024-06-08] MEDS ORDERED: BISA-79 GT (15:19)
[2024-06-08] MEDS ORDERED: DICY20TA11 GT (15:19)
[2024-06-08 15:57] LABS: BASOPHILS # (AUTO) 0.2 K/UL (0.0-0.2); DIFFERENTIAL COMMENT 0; EOSINOPHILS # (AUTO) 0.2 K/uL (0.0-0.7); EOSINOPHILS % (AUTO) 5.2 % (0.0-7.0); HEMATOCRIT 30.2 % (36.7-47.1); HEMOGLOBIN 9.4 g/dL (12.5-16.3); LYMPHOCYTES # (AUTO) 1.1 K/uL (0.8-4.8); LYMPHOCYTES % (AUTO) 30.1 % (20.5-51.5); MEAN CORPUSCULAR HEMOGLOBIN 22.1 uug (23.8-33.4); MEAN CORPUSCULAR HGB CONC 31 g/dL (32.5-36.3); MEAN CORPUSCULAR VOLUME 70.6 fL (73.0-96.2); MONOCYTES # (AUTO) 0.3 K/uL (0.1-1.30); MONOCYTES % (AUTO) 9.8 % (0.0-11.0); NEUTROPHILS # (AUTO) 1.8 K/uL (1.8-8.9); NEUTROPHILS % (AUTO) 49.7 % (38.5-71.5); PLATELET COUNT (AUTO) 205 K/uL (152-348); RED BLOOD CELL COUNT(AUTO) 4.27 MIL/uL (4.06-5.63); RED CELL DISTRIBUTION WIDTH 18.9 % (12.1-16.2); WHITE BLOOD COUNT (AUTO) 3.6 K/uL (3.6-10.2)
[2024-06-08 16:13] LABS: ALKALINE PHOSPHATASE 91 U/L (50-136); ASPARTATE AMINOTRANSFERASE 9 U/L (15-37); BILIRUBIN,DIRECT 0.1 mg/dL (0.0-0.2); BILIRUBIN,TOTAL 0.2 mg/dL (0.2-1.0); CALCIUM 7.5 mg/dL (8.5-10.1); CARBON DIOXIDE 25 mmol/L (21-32); CHLORIDE 112 mmol/L (98-107); CREATININE 0.6 mg/dL (0.6-1.3); GLUCOSE 80 mg/dL (74-106); POTASSIUM 3.6 mmol/L (3.5-5.1); SODIUM SERUM 144 mmol/L (136-145); UREA NITROGEN, BLOOD 9 mg/dL (7-18)
[2024-06-08 16:14] LABS: ALANINE AMINOTRANSFERASE 7 U/L (16-63); ALBUMIN 2.6 g/dL (3.4-5.0); LIPASE 11 U/L (16-77); TOTAL PROTEIN, SERUM 5.9 g/dL (6.4-8.2)
[2024-06-08 16:44] LABS: ANISOCYTOSIS 2+; BAND % (MANUAL) 1 % (0-10); BASOPHILS % (MANUAL) 1 % (0-2); EOSINOPHILS % (MANUAL) 6 % (0-8); LYMPHOCYTES % (MANUAL) 36 % (20-40); MONOCYTES % (MANUAL) 8 % (2-10); NEUTROPHILS % (MANUAL) 48 % (42-75); PLATELET ESTIMATE ADEQUATE
[2024-06-08 16:45] LABS: HYPOCHROMASIA 2+
[2024-06-08] MEDS ORDERED: REMEDY ESSENTIAL ZINC PASTE 113 GM TP PRN (17:15)
[2024-06-08] MEDS ORDERED: ACETAMINOPHEN 325 MG TABLET PO PRN (17:15)
[2024-06-08] MEDS: PANTOPRAZOLE SODIUM 40 MG TABLET.DR PO ONE (17:51)
[2024-06-08] MEDS ORDERED: PANTOPRAZOLE ORAL SUSPENSION 40 MG SUSPDR.PKT ONE (17:51)
[2024-06-08] MEDS ORDERED: HYDROMORPHONE HCL 2 MG TABLET ONE ×2 (17:52→18:12)
[2024-06-08] MEDS: HYDROMORPHONE HCL 2 MG TABLET PO ONE ×2 (17:53→18:13)
[2024-06-08 18:20] LABS: *OCCULT BLOOD STOOL NEGATIVE (NEGATIVE)
[2024-06-08] MEDS: PROCHLORPERAZINE EDISYLATE 10 MG/2 ML VIAL IV ONE (19:27)
[2024-06-08] MEDS ORDERED: diphenhydrAMINE 50 MG/1 ML VIAL ONE (19:27)
[2024-06-08] MEDS: diphenhydrAMINE 50 MG/1 ML VIAL IV ONE (19:27)
[2024-06-08] MEDS ORDERED: PROCHLORPERAZINE EDISYLATE 10 MG/2 ML VIAL ONE (19:27)
[2024-06-08] MEDS: IV NS 1000 ML 1,000 ML IV PRN (21:59)
[2024-06-08 22:15] VITALS: BP 149/71; TEMP 98.4; O2SAT 97
[2024-06-09] MEDS: HYDROMORPHONE 2 MG/1 ML DISP.SYRIN IV PRN (04:13)
[2024-06-09 04:51] VITALS: BP 150/75; TEMP 97.8; O2SAT 100
[2024-06-09 06:45] LABS: BASOPHILS # (AUTO) 0.3 K/UL (0.0-0.2); EOSINOPHILS # (AUTO) 0.1 K/uL (0.0-0.7); EOSINOPHILS % (AUTO) 4.2 % (0.0-7.0); HEMATOCRIT 33.2 % (36.7-47.1); HEMOGLOBIN 10.5 g/dL (12.5-16.3); LYMPHOCYTES # (AUTO) 1.1 K/uL (0.8-4.8); LYMPHOCYTES % (AUTO) 33.3 % (20.5-51.5); MEAN CORPUSCULAR HEMOGLOBIN 22.3 uug (23.8-33.4); MEAN CORPUSCULAR HGB CONC 32 g/dL (32.5-36.3); MEAN CORPUSCULAR VOLUME 70.6 fL (73.0-96.2); MONOCYTES # (AUTO) 0.3 K/uL (0.1-1.30); MONOCYTES % (AUTO) 8.9 % (0.0-11.0); NEUTROPHILS # (AUTO) 1.5 K/uL (1.8-8.9); PLATELET COUNT (AUTO) 231 K/uL (152-348); WHITE BLOOD COUNT (AUTO) 3.4 K/uL (3.6-10.2)
[2024-06-09 07:02] LABS: CALCIUM 8.4 mg/dL (8.5-10.1); CREATININE 0.7 mg/dL (0.6-1.3); PHOSPHOROUS 2.5 mg/dL (2.5-4.9); POTASSIUM 4.1 mmol/L (3.5-5.1)
[2024-06-09 07:11] LABS: DIFFERENTIAL COMMENT 1
[2024-06-09] MEDS: hydrALAZINE HCL 25 MG TABLET GT SCH (09:05)
[2024-06-09] MEDS: FOLIC ACID 1 MG TABLET GT SCH (09:05)
[2024-06-09] MEDS: METOPROLOL TARTRATE 25 MG TABLET GT SCH (09:06)
[2024-06-09] MEDS: AMLODIPINE 10 MG TABLET GT SCH (09:06)
[2024-06-09] MEDS: DICYCLOMINE HCL 20 MG TABLET GT SCH (09:06)
[2024-06-09] MEDS: DOCUSATE SODIUM 100 MG/10 ML LIQUID UDC GT SCH (09:06)
[2024-06-09 09:15] LABS: EOSINOPHILS % (MANUAL) 3 % (0-8); LYMPHOCYTES % (MANUAL) 38 % (20-40); MONOCYTES % (MANUAL) 7 % (2-10); NEUTROPHILS % (MANUAL) 52 % (42-75); PLATELET ESTIMATE ADEQUATE
[2024-06-09] MEDS ORDERED: IPRA3AMP23 IH (12:08)
[2024-06-09] MEDS ORDERED: CARI350T27 PO (12:11)
[2024-06-09 16:06] VITALS: BP 109/56; TEMP 98.3; O2SAT 98
[2024-06-09 19:40] VITALS: BP 109/44; TEMP 98.3; O2SAT 100
[2024-06-09] MEDS: TAMSULOSIN HCL 0.4 MG CAP.SR.24H PO SCH (21:00)
[2024-06-10 05:28] VITALS: BP 113/44; TEMP 98.3; O2SAT 99
[2024-06-10 08:50] VITALS: BP 108/61; TEMP 98.3; O2SAT 99
[2024-06-10] MEDS ORDERED: DICYCLOMINE HCL 20 MG TABLET PO PRN (09:45)
[2024-06-10 15:46] VITALS: BP 123/60; TEMP 98.6; O2SAT 98
[2024-06-10 19:15] VITALS: BP 130/62; TEMP 98.3; O2SAT 100
[2024-06-11 06:30] VITALS: BP 106/60; TEMP 97.6; O2SAT 99
[2024-06-11 09:17] VITALS: BP 102/56; TEMP 97.6; O2SAT 99
[2024-06-11 11:13] VITALS: BP 108/61; TEMP 98.7; O2SAT 98
[2024-06-11 15:18] LABS: *BILIRUBIN,URIN NEGATIVE (NEGATIVE); *COLOR,URINE YELLOW (YELLOW); *KETONES,URINE 2+ (NEGATIVE); *PROTEIN,URINE TRACE (NEGATIVE); LEUKOCYTE ESTERASE ,URINE 2+ (NEGATIVE); NITRITE, URINE NEGATIVE (NEGATIVE); PH,URINE 6.5 (5.0-8.0); UGLUCOSE TRACE (NEGATIVE)
[2024-06-11 15:24] VITALS: BP 103/58; TEMP 98.6; O2SAT 100
[2024-06-11 15:33] LABS: *BLOOD, URINE TRACE (NEGATIVE)
[2024-06-11 15:34] LABS: *CLARITY,URINE SLIGHTLY CLOUDY (CLEAR)
[2024-06-11 15:43] LABS: BACTERIA,URINE MANY /HPF (NONE SEEN); RBC,URINE 0-3 /HPF (0-3)
[2024-06-11 15:44] LABS: SQUAMOUS EPITHELIAL CELL,UR FEW /HPF (NONE SEEN); WBC,URINE 20-50 /HPF (0-3)
[2024-06-11] MEDS: ONDANSETRON 4 MG/2 ML VIAL IV PRN (17:17)
[2024-06-11] MEDS ORDERED: CEFTRIAXONE /D5W 50ML IVPB **ER PYXIS IV ONE (20:49)
[2024-06-11 21:00] VITALS: BP 123/60; TEMP 98.6; O2SAT 100
[2024-06-11] MEDS: CEFTRIAXONE 1 G in IV DEXTROSE 5% 50 ML IV SCH (21:00)
[2024-06-12 06:00] VITALS: BP 101/50; TEMP 98.7; O2SAT 100
[2024-06-12 11:51] VITALS: BP 101/55; TEMP 98; O2SAT 100
[2024-06-12 15:47] VITALS: BP 101/61; TEMP 97.9; O2SAT 99
[2024-06-12] MEDS ORDERED: CEFTRIAXONE /D5W 50ML IVPB **ER PYXIS IV ONE (21:18)
[2024-06-12 21:44] VITALS: BP 102/46; TEMP 98.1; O2SAT 100
[2024-06-13] MEDS: CARISOPRODOL 350 MG TABLET GT PRN (04:14)
[2024-06-13 07:22] VITALS: BP 111/54; TEMP 97.7; O2SAT 100
[2024-06-13 10:54] VITALS: BP 104/48; TEMP 98.3; O2SAT 99
[2024-06-13] MEDS: HYDROMORPHONE 2 MG/1 ML DISP.SYRIN IV ONE (13:43)
[2024-06-13 15:09] VITALS: BP 93/51; TEMP 98.7; O2SAT 96
[2024-06-13 20:00] VITALS: BP 102/50; TEMP 98.2; O2SAT 100
[2024-06-13] MEDS: CYCLOBENZAPRINE HCL 10 MG TABLET PO PRN (22:10)
[2024-06-14 04:00] VITALS: BP 105/43; TEMP 98.7; O2SAT 100
[2024-06-14 06:59] LABS: BASOPHILS # (AUTO) 0.2 K/UL (0.0-0.2); EOSINOPHILS # (AUTO) 0.2 K/uL (0.0-0.7); EOSINOPHILS % (AUTO) 4.3 % (0.0-7.0); HEMATOCRIT 30.6 % (36.7-47.1); HEMOGLOBIN 9.9 g/dL (12.5-16.3); LYMPHOCYTES # (AUTO) 1.3 K/uL (0.8-4.8); LYMPHOCYTES % (AUTO) 28.4 % (20.5-51.5); MEAN CORPUSCULAR HEMOGLOBIN 22.9 uug (23.8-33.4); MEAN CORPUSCULAR HGB CONC 32 g/dL (32.5-36.3); MEAN CORPUSCULAR VOLUME 70.8 fL (73.0-96.2); MONOCYTES # (AUTO) 0.4 K/uL (0.1-1.30); MONOCYTES % (AUTO) 9.1 % (0.0-11.0); NEUTROPHILS # (AUTO) 2.4 K/uL (1.8-8.9); NEUTROPHILS % (AUTO) 53.2 % (38.5-71.5); PLATELET COUNT (AUTO) 203 K/uL (152-348); RED BLOOD CELL COUNT(AUTO) 4.33 MIL/uL (4.06-5.63); RED CELL DISTRIBUTION WIDTH 19.1 % (12.1-16.2); WHITE BLOOD COUNT (AUTO) 4.4 K/uL (3.6-10.2)
[2024-06-14 07:22] LABS: DIFFERENTIAL COMMENT 1
[2024-06-14 07:25] LABS: IRON, SERUM 12 ug/dL (50-175)
[2024-06-14 07:30] LABS: ALANINE AMINOTRANSFERASE 9 U/L (16-63); ALBUMIN 2.4 g/dL (3.4-5.0); ALKALINE PHOSPHATASE 94 U/L (50-136); ASPARTATE AMINOTRANSFERASE 5 U/L (15-37); BILIRUBIN,TOTAL 0.2 mg/dL (0.2-1.0); CARBON DIOXIDE 24 mmol/L (21-32); CHLORIDE 112 mmol/L (98-107); CREATININE 0.6 mg/dL (0.6-1.3); GLUCOSE 79 mg/dL (74-106); MAGNESIUM 1.7 mg/dL (1.8-2.4); PHOSPHOROUS 2.6 mg/dL (2.5-4.9); POTASSIUM 3.7 mmol/L (3.5-5.1); SODIUM SERUM 144 mmol/L (136-145); TOTAL PROTEIN, SERUM 5.6 g/dL (6.4-8.2); UREA NITROGEN, BLOOD 5 mg/dL (7-18)
[2024-06-14 11:19] VITALS: BP 117/59; TEMP 98.4; O2SAT 94
[2024-06-14] MEDS: MAGNESIUM OXIDE 400 MG TABLET GT ONE (12:19)
[2024-06-14 12:49] LABS: LYMPHOCYTES % (MANUAL) 30 % (20-40); NEUTROPHILS % (MANUAL) 65 % (42-75)
[2024-06-14 12:50] LABS: EOSINOPHILS % (MANUAL) 2 % (0-8); MONOCYTES % (MANUAL) 3 % (2-10); PLATELET ESTIMATE ADEQUATE
[2024-06-14 12:59] LABS: ANISOCYTOSIS 2+; HYPOCHROMASIA 2+
[2024-06-14] MEDS ORDERED: CEFT1VIA15 IV (13:54)
[2024-06-14] MEDS ORDERED: FERR324T17 GT (14:18)
[2024-06-14 15:11] VITALS: BP 109/52; TEMP 97.6; O2SAT 100
== END 2024-06-14 15:45 | DRG 812 ==
LOC: ER 14:53 → MEDSURG3 21:39
PROVIDERS: ADMIT Internal Medicine; ATTEND Internal Medicine
DX: D50.9 Iron deficiency anemia, unspecified (principal); N39.0 Urinary tract infection, site not specified; D68.59 Other primary thrombophilia; I50.32 Chronic diastolic (congestive) heart failure; M48.56XA Collapsed vertebra, not elsewhere classified, lumbar region, initial encounter for fracture; K51.90 Ulcerative colitis, unspecified, without complications; B96.89 Other specified bacterial agents as the cause of diseases classified elsewhere; G89.4 Chronic pain syndrome; Z79.891 Long term (current) use of opiate analgesic; R13.10 Dysphagia, unspecified; M50.21 Other cervical disc displacement, high cervical region; Z90.49 Acquired absence of other specified parts of digestive tract; Z88.6 Allergy status to analgesic agent; Z88.5 Allergy status to narcotic agent; Z87.440 Personal history of urinary (tract) infections; Z93.4 Other artificial openings of gastrointestinal tract status; Z98.890 Other specified postprocedural states; Z74.09 Other reduced mobility; N40.0 Benign prostatic hyperplasia without lower urinary tract symptoms; K59.00 Constipation, unspecified; M48.02 Spinal stenosis, cervical region; M51.16 Intervertebral disc disorders with radiculopathy, lumbar region; I25.10 Atherosclerotic heart disease of native coronary artery without angina pectoris; E03.9 Hypothyroidism, unspecified; Z79.890 Hormone replacement therapy; Z85.118 Personal history of other malignant neoplasm of bronchus and lung; Z79.899 Other long term (current) drug therapy; G47.00 Insomnia, unspecified; R00.1 Bradycardia, unspecified; T40.2X5A Adverse effect of other opioids, initial encounter; Y92.129 Unspecified place in nursing home as the place of occurrence of the external cause; F32.A Depression, unspecified; F41.9 Anxiety disorder, unspecified; E53.8 Deficiency of other specified B group vitamins; I73.9 Peripheral vascular disease, unspecified; I11.0 Hypertensive heart disease with heart failure; R94.8 Abnormal results of function studies of other organs and systems; K21.00 Gastro-esophageal reflux disease with esophagitis, without bleeding
CPT/HCPCS: 36415; 70450; 71045; 71250; 72125; 82378; 83550; 83690; 83735; 84100; 84484; 85025; 85730; 86850; 86900; 86901; 87086; A4606; A4663; G0378; J0696; J0780; J1171; J1200; J2405; J7040

== ENCOUNTER 2024-09-15 17:36 | Inpatient (IN) | payer MEDICARE, OTHER, MEDICAID ==
[~2024-09-15] VITALS: Ht 170.2 cm; Wt 60.4 kg
[~2024-09-15 17:36] MED LIST changes: +BENZ11.95 TOP; +BISA-79 GT; +CEFT1VIA15 IV; -CYAN10006 IM; +DICY20TA11 GT; +FERR324T17 GT; -HYDR-894 GT; +IPRA3AMP23 IH; -LEVO75TA7 GT; -MAGN400O6 GT; +METO25TA6 GT; -NA P133E RC; -PIPE3.379 IV
[2024-09-15] MEDS ORDERED: PROCHLORPERAZINE EDISYLATE 10 MG/2 ML VIAL IV ONE (18:45)
[2024-09-15] MEDS ORDERED: DIAZ5TAB4 GT (18:58)
[2024-09-15] MEDS ORDERED: METO25TA6 GT (18:58)
[2024-09-15] MEDS ORDERED: MULT-213 GT (18:58)
[2024-09-15 19:18] LABS: PLATELET COUNT (AUTO) 245 K/uL (152-348); RED BLOOD CELL COUNT(AUTO) 5.89 MIL/uL (4.06-5.63); RED CELL DISTRIBUTION WIDTH 17.8 % (12.1-16.2); WHITE BLOOD COUNT (AUTO) 4.0 K/uL (3.6-10.2)
[2024-09-15] MEDS ORDERED: PROCHLORPERAZINE EDISYLATE 10 MG/2 ML VIAL ONE (19:38)
[2024-09-15] MEDS ORDERED: diphenhydrAMINE 50 MG/1 ML VIAL ONE (19:38)
[2024-09-15] MEDS ORDERED: HYDROMORPHONE 1 MG/1 ML DISP.SYRIN ONE (19:39)
[2024-09-15 19:41] LABS: CREATININE 1.0 mg/dL (0.6-1.3); SODIUM SERUM 135.0 mmol/L (136-145); UREA NITROGEN, BLOOD 10.0 mg/dL (7-18)
[2024-09-15 19:47] LABS: ASPARTATE AMINOTRANSFERASE 13.0 U/L (15-37); TOTAL PROTEIN, SERUM 8.3 g/dL (6.4-8.2)
[2024-09-15] MEDS: HYDROMORPHONE 1 MG/1 ML DISP.SYRIN IV ONE ×2 (19:51→22:49)
[2024-09-15] MEDS: diphenhydrAMINE 50 MG/1 ML VIAL IV ONE (19:51)
[2024-09-15] MEDS ORDERED: ONDANSETRON 4 MG/2 ML VIAL ONE (19:53)
[2024-09-15] MEDS: ONDANSETRON 4 MG/2 ML VIAL IV ONE (20:00)
[2024-09-15] MEDS ORDERED: IOHEXOL 300MG/ML 100 ML INFUS..BTL ONE (20:26)
[2024-09-15 21:18] LABS: ABG BASE EXCESS -14.6 mmol/L (-2.0-3.0); ABG HCO3 11.5 mmol/L (21.0-28.0); ABG PCO2 28.7 mmHg (35.0-48.0); ABG PH 7.222 (7.350-7.450); ABG PO2 86.9 mmHg (83.0-108.0); ABG SITE LEFT RADIAL; ABG TOTAL HEMOGLOBIN 13.9 G/dL (13.5-17.5); AaDO2 95.0 mmHg; FIO2 21.0 %
[2024-09-15] MEDS ORDERED: MIRALAX 17 GM POWD.PACK GT PRN (21:45)
[2024-09-15] MEDS ORDERED: CARISOPRODOL 350 MG TABLET GT PRN (21:45)
[2024-09-15] MEDS ORDERED: ACETAMINOPHEN 325 MG TABLET PO PRN (21:45)
[2024-09-15] MEDS ORDERED: MAGNESIUM HYDROXIDE 30 ML LIQUID UDC PO PRN (21:45)
[2024-09-15] MEDS ORDERED: HYDROMORPHONE 1 MG/1 ML DISP.SYRIN IV PRN (21:45)
[2024-09-15] MEDS ORDERED: REMEDY ESSENTIAL ZINC PASTE 113 GM TP PRN (21:45)
[2024-09-15 21:49] LABS: ETHANOL < 3 MG/DL (0-10)
[2024-09-15] MEDS: IV D5/ 0.9% NACL 1,000 ML IV ONE (22:48)
[2024-09-15] MEDS: SODIUM BICARBONATE 8.4% 50 MEQ/50 ML DISP.SYRIN IV ONE (22:49)
[2024-09-16] MEDS ORDERED: OXYCODONE HCL 20 MG/1 ML LIQUID UDC GT PRN (00:45)
[2024-09-16 00:53] VITALS: BP 147/77
[2024-09-16] MEDS: HYDROMORPHONE 1 MG/1 ML DISP.SYRIN IV PRN ×2 (03:39→11:30)
[2024-09-16] MEDS ORDERED: SODIUM BICARBONATE 8.4% 50 MEQ/50 ML DISP.SYRIN IV ONE (05:34)
[2024-09-16] MEDS: SODIUM BICARBONATE 8.4% 100 MEQ in IV D5 1/2 NS 1000 ML 1,000 ML IV PRN (05:57)
[2024-09-16 07:23] VITALS: BP 144/72; TEMP 98.1; O2SAT 97
[2024-09-16 08:15] LABS: PLATELET COUNT (AUTO) 206 K/uL (152-348); RED BLOOD CELL COUNT(AUTO) 5.16 MIL/uL (4.06-5.63); RED CELL DISTRIBUTION WIDTH 17.4 % (12.1-16.2); WHITE BLOOD COUNT (AUTO) 3.2 K/uL (3.6-10.2)
[2024-09-16 08:30] LABS: ASPARTATE AMINOTRANSFERASE 9.0 U/L (15-37); CREATININE 0.8 mg/dL (0.6-1.3); SODIUM SERUM 139.0 mmol/L (136-145); TOTAL PROTEIN, SERUM 6.8 g/dL (6.4-8.2); UREA NITROGEN, BLOOD 6.0 mg/dL (7-18)
[2024-09-16] MEDS: FOLIC ACID 1 MG TABLET GT SCH (09:00)
[2024-09-16] MEDS: DOCUSATE SODIUM 100 MG/10 ML LIQUID UDC GT SCH (09:00)
[2024-09-16] MEDS: PANTOPRAZOLE ORAL SUSPENSION 40 MG SUSPDR.PKT GT SCH (09:00)
[2024-09-16] MEDS ORDERED: HYDROMORPHONE 1 MG/1 ML DISP.SYRIN IV PRN (09:00)
[2024-09-16] MEDS ORDERED: Medication Not On Formulary EA (Ferrous Gluconate 324 MG) GT SCH (09:00)
[2024-09-16] MEDS: MULTIVITAMINS 5 ML LIQUID UDC GT SCH (09:00)
[2024-09-16] MEDS: METOPROLOL TARTRATE 25 MG TABLET GT SCH (09:00)
[2024-09-16] MEDS: AMLODIPINE 10 MG TABLET GT SCH (09:00)
[2024-09-16] MEDS ORDERED: FERROUS GLUCONATE 324 MG TABLET PO SCH ×2 (09:00)
[2024-09-16] MEDS: CULTURELLE CAPSULE GT SCH (09:00)
[2024-09-16] MEDS: DICYCLOMINE HCL 20 MG TABLET GT SCH (09:00)
[2024-09-16 09:59] LABS: EOSINOPHILS % (MANUAL) 3 % (0-8); LYMPHOCYTES % (MANUAL) 29 % (20-40); MONOCYTES % (MANUAL) 14 % (2-10); NEUTROPHILS % (MANUAL) 54 % (42-75); PLATELET ESTIMATE ADEQUATE
[2024-09-16 11:34] VITALS: BP 103/76; TEMP 97.9; O2SAT 100
[2024-09-16] MEDS ORDERED: NEUTRA PHOS PACKET GT ONE (14:00)
[2024-09-16] MEDS: SOD FERRIC GLUC COMPLX/SUCROSE 125 MG in IV NORMAL SALINE 100 ML IV SCH (14:00)
[2024-09-16] MEDS: MAGNESIUM SULFATE/D5W 100 ML IV SCH (14:54)
[2024-09-16] MEDS ORDERED: SODIUM PHOSPHATE MM 15 MMOL in IV NORMAL SALINE 250 ML IV ONE (15:00)
[2024-09-16] MEDS: SODIUM PHOSPHATE MM 15 MMOL in IV NORMAL SALINE 250 ML IV ONE (15:10)
[2024-09-16 15:37] VITALS: BP 132/90; TEMP 98.6; O2SAT 99
[2024-09-16] MEDS: PANTOPRAZOLE SODIUM 40 MG VIAL IV ONE (16:45)
[2024-09-16] MEDS: IV D5 1/2 NS 1000 ML 1,000 ML IV PRN (18:51)
[2024-09-16] MEDS: HYDROMORPHONE 2 MG/1 ML DISP.SYRIN IV PRN (18:52)
[2024-09-16 19:57] VITALS: BP 124/68; TEMP 97.6; O2SAT 93
[2024-09-16] MEDS: TAMSULOSIN HCL 0.4 MG CAP.SR.24H PO SCH (20:50)
[2024-09-16] MEDS: ONDANSETRON 4 MG/2 ML VIAL IV PRN (21:52)
[2024-09-17 00:06] VITALS: BP 147/70; TEMP 97.9; O2SAT 100
[2024-09-17 04:39] VITALS: BP 155/73; TEMP 97.9; O2SAT 98
[2024-09-17 05:19] LABS: *BILIRUBIN,URIN 1+ (NEGATIVE); *CLARITY,URINE CLEAR (CLEAR); *COLOR,URINE YELLOW (YELLOW); *KETONES,URINE 4+ (NEGATIVE); *PROTEIN,URINE 1+ (NEGATIVE); *UROBILINOGEN,URINE 0.2 E.U./dl (NORMAL); LEUKOCYTE ESTERASE ,URINE NEGATIVE (NEGATIVE); NITRITE, URINE NEGATIVE (NEGATIVE); UGLUCOSE NEGATIVE (NEGATIVE)
[2024-09-17 05:28] LABS: *BLOOD, URINE TRACE (NEGATIVE)
[2024-09-17 05:42] LABS: SQUAMOUS EPITHELIAL CELL,UR NONE SEEN /HPF (NONE SEEN)
[2024-09-17 08:00] VITALS: BP 135/71; TEMP 98.8; O2SAT 97
[2024-09-17] MEDS: PANTOPRAZOLE SODIUM 40 MG VIAL IV SCH (08:43)
[2024-09-17 11:53] VITALS: BP 144/65; TEMP 98.1; O2SAT 99
[2024-09-17 16:26] VITALS: BP 149/70; TEMP 97.8; O2SAT 100
[2024-09-17] MEDS ORDERED: MIRALAX 17 GM POWD.PACK PO PRN (18:30)
[2024-09-17] MEDS ORDERED: CARISOPRODOL 350 MG TABLET PO PRN (21:00)
[2024-09-17 22:02] VITALS: BP 130/61; TEMP 98; O2SAT 100
[2024-09-18 07:10] VITALS: BP 141/59; TEMP 98.8; O2SAT 95
[2024-09-18 08:02] VITALS: BP 111/84; TEMP 97.9; O2SAT 98
[2024-09-18] MEDS: METOPROLOL TARTRATE 25 MG TABLET PO SCH (09:00)
[2024-09-18] MEDS ORDERED: MULTIVITAMINS 5 ML LIQUID UDC PO SCH (09:00)
[2024-09-18] MEDS: DOCUSATE SODIUM 100 MG/10 ML LIQUID UDC PO SCH (09:00)
[2024-09-18] MEDS: DICYCLOMINE HCL 20 MG TABLET PO SCH (09:50)
[2024-09-18] MEDS: FOLIC ACID 1 MG TABLET PO SCH (09:57)
[2024-09-18] MEDS: CULTURELLE CAPSULE PO SCH (09:59)
[2024-09-18] MEDS: MULTIVITAMINS,THERAPEUTIC TABLET PO SCH (10:00)
[2024-09-18] MEDS: AMLODIPINE 10 MG TABLET PO SCH (10:00)
[2024-09-18 12:00] VITALS: BP 139/64; TEMP 97.6; O2SAT 100
[2024-09-18 16:16] VITALS: BP 123/66; TEMP 98.5; O2SAT 99
[2024-09-18 17:00] VITALS: BP 123/70
== END 2024-09-18 17:45 | DRG 948 ==
LOC: ER 17:36 → MEDSURG3 19:48 → UNDOADMIN 19:48 → TELE3 19:48
PROVIDERS: ADMIT Nurse Practitioner Acute Care; ATTEND Internal Medicine
DX: G89.3 Neoplasm related pain (acute) (chronic) (principal); C18.9 Malignant neoplasm of colon, unspecified; E87.20 Acidosis, unspecified; K94.23 Gastrostomy malfunction; K51.90 Ulcerative colitis, unspecified, without complications; N40.0 Benign prostatic hyperplasia without lower urinary tract symptoms; Z66 Do not resuscitate; I11.0 Hypertensive heart disease with heart failure; I50.9 Heart failure, unspecified; M54.31 Sciatica, right side; G47.00 Insomnia, unspecified; K21.9 Gastro-esophageal reflux disease without esophagitis; R22.2 Localized swelling, mass and lump, trunk; Z79.899 Other long term (current) drug therapy; Z88.6 Allergy status to analgesic agent; Z88.5 Allergy status to narcotic agent; Z88.8 Allergy status to other drugs, medicaments and biological substances; Z90.49 Acquired absence of other specified parts of digestive tract; Z85.118 Personal history of other malignant neoplasm of bronchus and lung
CPT/HCPCS: 36415; 36600; 70030-TC; 71045; 82803; 83605; 83690; 83735; 84100; 85025; G0378; G0480; J0780; J1171; J1200; J2405; J2470; J2916; J3475; J3490; J7042; Q9967

== ENCOUNTER 2024-10-28 02:02 | Inpatient (IN) | payer MEDICARE, OTHER ==
[~2024-10-28] VITALS: Ht 170.2 cm; Wt 64.0 kg
[~2024-10-28 02:02] MED LIST changes: -CEFT1VIA15 IV; +DIAZ5TAB4 GT; +MULT-213 GT
[2024-10-28] MEDS ORDERED: HYDROMORPHONE 1 MG/1 ML DISP.SYRIN ONE ×3 (02:41→10:38)
[2024-10-28] MEDS ORDERED: ONDANSETRON 4 MG/2 ML VIAL ONE ×2 (02:41→10:37)
[2024-10-28] MEDS ORDERED: SUMA50TA GT (02:51)
[2024-10-28] MEDS ORDERED: ASPI-966 GT (02:51)
[2024-10-28] MEDS: IV NS 1000 ML 1,000 ML IV ONE (02:55)
[2024-10-28] MEDS: HYDROMORPHONE 1 MG/1 ML DISP.SYRIN IV ONE ×4 (02:56→11:07)
[2024-10-28] MEDS: ONDANSETRON 4 MG/2 ML VIAL IV ONE ×2 (02:56→11:07)
[2024-10-28 03:25] LABS: PLATELET COUNT (AUTO) 231 K/uL (152-348); RED BLOOD CELL COUNT(AUTO) 5.15 MIL/uL (4.06-5.63); RED CELL DISTRIBUTION WIDTH 17.8 % (12.1-16.2); WHITE BLOOD COUNT (AUTO) 4.1 K/uL (3.6-10.2)
[2024-10-28 03:46] LABS: ASPARTATE AMINOTRANSFERASE 8 U/L (15-37); SODIUM SERUM 136 mmol/L (136-145); TOTAL PROTEIN, SERUM 7.2 g/dL (6.4-8.2); UREA NITROGEN, BLOOD 10 mg/dL (7-18)
[2024-10-28 03:55] LABS: CREATININE 0.6 mg/dL (0.6-1.3)
[2024-10-28 04:05] LABS: *BILIRUBIN,URIN NEGATIVE (NEGATIVE); *BLOOD, URINE NEGATIVE (NEGATIVE); *CLARITY,URINE CLEAR (CLEAR); *COLOR,URINE YELLOW (YELLOW); *KETONES,URINE NEGATIVE (NEGATIVE); *PROTEIN,URINE NEGATIVE (NEGATIVE); *UROBILINOGEN,URINE 0.2 E.U./dl (NORMAL); LEUKOCYTE ESTERASE ,URINE NEGATIVE (NEGATIVE); NITRITE, URINE NEGATIVE (NEGATIVE); UGLUCOSE NEGATIVE (NEGATIVE)
[2024-10-28] MEDS ORDERED: IOHEXOL 300MG/ML 100 ML INFUS..BTL ONE (04:12)
[2024-10-28 04:23] LABS: BASOPHILS % (MANUAL) 1 % (0-2); EOSINOPHILS % (MANUAL) 3 % (0-8); LYMPHOCYTES % (MANUAL) 37 % (20-40); MONOCYTES % (MANUAL) 8 % (2-10); NEUTROPHILS % (MANUAL) 51 % (42-75)
[2024-10-28 04:24] LABS: PLATELET ESTIMATE ADEQUATE
[2024-10-28] MEDS ORDERED: HYDROMORPHONE 2 MG/1 ML DISP.SYRIN ONE (07:09)
[2024-10-28] MEDS: MAGNESIUM HYDROXIDE 30 ML LIQUID UDC JT ONE (08:15)
[2024-10-28 09:17] LABS: IRON, SERUM 40 ug/dL (50-175)
[2024-10-28] MEDS ORDERED: CYANOCOBALAMIN 1000 MCG/ML VIAL ONE (09:30)
[2024-10-28] MEDS ORDERED: MAGNESIUM HYDROXIDE 30 ML LIQUID UDC ONE (09:30)
[2024-10-28] MEDS: CYANOCOBALAMIN 1000 MCG/ML VIAL IM ONE (10:07)
[2024-10-28 10:59] VITALS: BP 165/83
[2024-10-28 13:18] VITALS: BP 153/63; TEMP 98.7; O2SAT 100
[2024-10-28] MEDS ORDERED: MENTHOL TOP PRN (15:45)
[2024-10-28] MEDS ORDERED: [UNRECOGNIZED DRUG - OTHER] TOP PRN (15:45)
[2024-10-28] MEDS ORDERED: MIRALAX 17 GM POWD.PACK GT PRN (15:45)
[2024-10-28] MEDS ORDERED: CARISOPRODOL 350 MG TABLET GT PRN (15:45)
[2024-10-28] MEDS ORDERED: OXYCODONE HCL 60 MG GT PRN (15:45)
[2024-10-28] MEDS ORDERED: DIAZEPAM 5 MG TABLET GT PRN (15:45)
[2024-10-28] MEDS ORDERED: BENZOCAINE TOP PRN (15:45)
[2024-10-28] MEDS ORDERED: BISACODYL 5 MG TABLET.DR PO PRN (16:00)
[2024-10-28] MEDS: SUMATRIPTAN SUCCINATE 6 MG/0.5 ML VIAL SQ ONE (16:55)
[2024-10-28] MEDS: DICYCLOMINE HCL 20 MG TABLET GT SCH (16:58)
[2024-10-28] MEDS: DOCUSATE SODIUM 100 MG/10 ML LIQUID UDC GT SCH (16:58)
[2024-10-28] MEDS ORDERED: OXYCODONE HCL 5 MG TABLET GT PRN (17:00)
[2024-10-28] MEDS: HYDROMORPHONE 2 MG/1 ML DISP.SYRIN IV PRN (17:10)
[2024-10-28] MEDS ORDERED: BENZOCAINE ORAL CARE 12 ML BOTTLE MM PRN (17:45)
[2024-10-28 19:19] VITALS: BP 103/63; TEMP 98; O2SAT 96
[2024-10-28] MEDS: METOPROLOL TARTRATE 25 MG TABLET GT SCH (20:11)
[2024-10-28] MEDS: TAMSULOSIN HCL 0.4 MG CAP.SR.24H PO SCH (20:23)
[2024-10-29 05:52] VITALS: BP 140/62; TEMP 98.3; O2SAT 99
[2024-10-29] MEDS: AMLODIPINE 10 MG TABLET GT SCH (08:31)
[2024-10-29] MEDS: CULTURELLE CAPSULE GT SCH (08:32)
[2024-10-29] MEDS: MULTIVIT, IRON, MIN NO. 8, FA TABLET GT SCH (08:32)
[2024-10-29] MEDS: FOLIC ACID 1 MG TABLET GT SCH (08:32)
[2024-10-29] MEDS: ONDANSETRON 4 MG/2 ML VIAL IV PRN (08:33)
[2024-10-29] MEDS ORDERED: Medication Not On Formulary EA (Multivitamins W-Minerals (Multivitamin With Minerals) 1 GT SCH (09:00)
[2024-10-29] MEDS ORDERED: [UNRECOGNIZED DRUG - OTHER] GT SCH (09:00)
[2024-10-29 11:31] VITALS: BP 143/68; TEMP 98.2; O2SAT 96
[2024-10-29 16:00] VITALS: BP 148/77; TEMP 98.2; O2SAT 99
[2024-10-29] MEDS: SUMATRIPTAN SUCCINATE 6 MG/0.5 ML VIAL SQ ONE (16:10)
[2024-10-29 19:14] VITALS: BP 107/63; TEMP 98.4; O2SAT 98
[2024-10-30 05:18] VITALS: BP 128/68; TEMP 98; O2SAT 100
[2024-10-30 06:36] LABS: PLATELET COUNT (AUTO) 200 K/uL (152-348); RED BLOOD CELL COUNT(AUTO) 4.64 MIL/uL (4.06-5.63); RED CELL DISTRIBUTION WIDTH 17.4 % (12.1-16.2); WHITE BLOOD COUNT (AUTO) 3.7 K/uL (3.6-10.2)
[2024-10-30 06:51] LABS: ASPARTATE AMINOTRANSFERASE < 5 U/L (15-37); CREATININE 0.7 mg/dL (0.6-1.3); SODIUM SERUM 139 mmol/L (136-145); TOTAL PROTEIN, SERUM 6.6 g/dL (6.4-8.2); UREA NITROGEN, BLOOD 10 mg/dL (7-18)
[2024-10-30 11:30] VITALS: BP 113/62; TEMP 98.5; O2SAT 99
[2024-10-30 12:46] VITALS: BP 133/57
[2024-10-30 16:00] VITALS: BP 133/64; TEMP 98.5; O2SAT 100
[2024-10-30] MEDS ORDERED: METO25TA6 PO (16:42)
== END 2024-10-30 18:40 | DRG 389 ==
LOC: ER 02:05 → MEDSURG3 11:34
PROVIDERS: ADMIT Internal Medicine; ATTEND Internal Medicine
PROC: 02HV33Z Insertion of Infusion Device into Superior Vena Cava, Percutaneous Approach (ICD-10-PCS; principal; 2024-10-30)
DX: K56.41 Fecal impaction (principal); D68.59 Other primary thrombophilia; I50.32 Chronic diastolic (congestive) heart failure; K51.911 Ulcerative colitis, unspecified with rectal bleeding; E44.1 Mild protein-calorie malnutrition; M48.56XA Collapsed vertebra, not elsewhere classified, lumbar region, initial encounter for fracture; G43.909 Migraine, unspecified, not intractable, without status migrainosus; Z66 Do not resuscitate; N50.82 Scrotal pain; G89.4 Chronic pain syndrome; N40.1 Benign prostatic hyperplasia with lower urinary tract symptoms; R33.8 Other retention of urine; E61.1 Iron deficiency; E53.8 Deficiency of other specified B group vitamins; I65.23 Occlusion and stenosis of bilateral carotid arteries; I11.0 Hypertensive heart disease with heart failure; K21.9 Gastro-esophageal reflux disease without esophagitis; E03.9 Hypothyroidism, unspecified; Z88.6 Allergy status to analgesic agent; Z88.5 Allergy status to narcotic agent; Z74.09 Other reduced mobility; K21.00 Gastro-esophageal reflux disease with esophagitis, without bleeding; K22.2 Esophageal obstruction; R13.10 Dysphagia, unspecified; Z80.9 Family history of malignant neoplasm, unspecified; Z82.3 Family history of stroke; Z82.49 Family history of ischemic heart disease and other diseases of the circulatory system; Z90.49 Acquired absence of other specified parts of digestive tract; Z91.81 History of falling; Z68.22 Body mass index [BMI] 22.0-22.9, adult; M51.16 Intervertebral disc disorders with radiculopathy, lumbar region; Z87.440 Personal history of urinary (tract) infections; Z85.118 Personal history of other malignant neoplasm of bronchus and lung; Z93.1 Gastrostomy status; Z79.899 Other long term (current) drug therapy; Z86.59 Personal history of other mental and behavioral disorders; R94.31 Abnormal electrocardiogram [ECG] [EKG]; R93.89 Abnormal findings on diagnostic imaging of other specified body structures
CPT/HCPCS: 36415; 70030-TC; 71045; 76870; 83550; 83605; 83735; 84100; 84153; 84484; 85025; 85730; 87040; 87086; A4606; G0378; J1171; J2405; J3030; J3420; J7040; Q9967